=== PATIENT | female | born 1945 | race Caucasian/White ===

== ENCOUNTER 2016-10-24 07:22 | Day surgery (SDC) | payer OTHER ==
[2016-10-24] MEDS ORDERED: D5 LR 1000 ML 1,000 ML IV ONE (07:31)
[2016-10-24] MEDS ORDERED: DIPRIVAN VIAL 20 ML ONE (08:53)
[2016-10-24] MEDS ORDERED: DIPRIVAN VIAL 10 ML ONE (09:20)
[2016-10-24 10:26] VITALS: BP 120/64
== END 2016-10-24 09:55 | disposition home or self-care (01) ==
LOC: SURG1 07:22
PROVIDERS: ATTEND Internal Medicine Gastroenterology
PROC: 0DBL8ZX Excision of Transverse Colon, Via Natural or Artificial Opening Endoscopic, Diagnostic (ICD-10-PCS; principal; 2016-10-24 09:30)
PROC: 0DJD8ZZ Inspection of Lower Intestinal Tract, Via Natural or Artificial Opening Endoscopic (ICD-10-PCS; principal; 2016-10-24 09:30)
DX: K92.1 Melena (principal); Z86.010 Personal history of colon polyps; Z83.71 Family history of colonic polyps; K63.5 Polyp of colon; K57.30 Diverticulosis of large intestine without perforation or abscess without bleeding; K64.0 First degree hemorrhoids; D12.3 Benign neoplasm of transverse colon
CPT/HCPCS: 99100; A4217; J3490; J7120

== ENCOUNTER → 2017-07-03 | Outpatient (CLI) | payer OTHER ==
--- NOTE | 2017-07-03 12:02 | MG ---
HISTORY: SCREENING Comparison: 04/20/2015 FINDINGS: Bilateral CC and MLO projections of the right and left breast were obtained. Scattered fibroglandula r tissue is seen to be present. No significant architectural distortion, mass or clustered microcalc ifications can be observed to suggest malignancy. No skin thickening or nipple retraction is appreci ated. No pathological lymphadenopathy can be identified. IMPRESSION: NO RADIOGRAPHIC EVIDENCE OF MALIGNANCY. ACR CATEGORY: 1 - NEGATIVE EXAM. FOLLOW-UP EXAM 1 YEAR. Diagnostic CAD was utilized and reviewed. * 0 (ZERO) - ASSESSMENT INCOMPLETE; ADDITIONAL IMAGING IS NEEDED. * 1/1 (ONE) - NEGATIVE. * 2/II (TWO) - BENIGN FINDINGS. * 3/III (THREE) - PROBABLY BENIGN FINDING; SHORT INTERVAL FOLLOW-UP SUGGESTED. * 4/IV (FOUR) - SUSPICIOUS ABNORMALITY; BIOPSY SHOULD BE CONSIDERED. * 5/V - HIGHLY SUSPICIOUS OF MALIGNANCY; BIOPSY SHOULD BE PERFORMED. A NEGATIVE X-RAY REPORT SHOULD NOT DELAY BIOPSY IF A DOMINANT OR CLINICALLY SUSPICIOUS MASS IS PRESENT; 4 TO 8 PERCENT OF CANCERS ARE NOT IDENTIFIED BY X-RAY. A NEGA TIVE REPORT MAY REINFORCE THE CLINICAL IMPRESSION. ADENOSIS AND DENSE BREASTS MAY OBSCURE AN UNDERLY ING NEOPLASM. Reported By:
== END ==
LOC: RAD 10:45
PROVIDERS: ATTEND Internal Medicine
DX: Z12.31 Encounter for screening mammogram for malignant neoplasm of breast (principal)
CPT/HCPCS: 77067

== ENCOUNTER 2019-05-26 07:00 | Observation (INO) ==
[2019-05-26] MEDS ORDERED: ASPIRIN 81 MG CHEWTAB ONE (07:19)
[2019-05-26] MEDS ORDERED: ZOFRAN INJ 4 MG VIAL IVP ONE (07:27)
[2019-05-26] MEDS ORDERED: MORPHINE SULFATE INJ 2 MG INJ ONE ×2 (07:27→09:17)
[2019-05-26] MEDS ORDERED: ZOFRAN INJ 4 MG VIAL ONE (07:27)
[2019-05-26] MEDS ORDERED: MORPHINE SULFATE INJ 2 MG INJ IVP ONE ×2 (07:27→09:14)
[2019-05-26] MEDS ORDERED: NITRO-BID OINT 2% UD (E.R. USE ONLY) TD ONE (07:27)
[2019-05-26] MEDS ORDERED: ASPIRIN 81 MG CHEWTAB PO ONE (07:31)
--- NOTE | 2019-05-26 07:34 | DR.CP ---
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 Family History Family Medical History: Hypertension Social History Do you use any recreational Drugs:: No Infectious screening Isolation: Standard ROS Review of Systems Constitutional: No Symptoms Reported Respiratoy: No Symptoms Reported Cardiovascular: See HPI Gastrointestinal/Abdominal: No Symptoms Reported Genitourinary: No Symptoms Reported Neurological: No Symptoms Reported Musculoskeletal: See HPI Integumentary: No Symptoms Reported Hematologic/Lymphatic: No Symptoms Reported Endocrine: No Symptoms Reported Psychiatric: No Symptoms Reported PE Vitals Vitals: Temperature 98.4 F Pulse Rate 71 Respiratory Rate 26 Blood Pressure [Right Arm] 133/68 Blood Pressure 136/63 O2 Sat by Pulse Oximetry 99 General Limitations: No Limitations General Appearance: Alert and In No Apparent Distress Head Head Exam: Normal Inspection, Atraumatic and Normocephalic Eyes Eye exam: Normal Appearance, PERRL and EOMI ENT ENT Exam: Normal Exam Chest Chest Inspection: Normal Inspection, Symmetric Chest Wall Rise and Tenderness (mid to lateral lt chest wall) Respiratory Respiratory Exam: Normal Lung Sounds Bilat Respiratory Exam: Bilateral: Clear to Auscultation Cardiovascular Cardiovascular Exam: Regular Rate and Normal Rhythm Abdominal Exam Abdominal Exam: Normal Inspection, Normal Bowel Sounds and Soft Extremities Extremities Exam: Normal Inspection and Full ROM Back Back Exam: Normal Inspection Neurologic Neurological Exam: Alert, Oriented X3 and CN II-XII Intact Psychiatric Psychiatric Exam: Anxious (mild tears) Skin Skin Exam: Warm COURSE Treatment Treatment: 0[address] turned over to Dr Segovia Reevaluation 1st: Improved ("a little bit better but I still feel it in here (pointing to dis tho sternum) when I breathe"; diaphoretic) ROR Labs Reviewed Result Diagrams: 05/28/19 04:21 05/28/19 04:21 Laboratory: WBC 10.8 X10^3/uL (3.6-10.0) H 05/26/19 07:20 RBC 4.21 X10^6/uL (3.5-5.4) 05/26/19 07:20 Hgb 13.1 g/dL (12.0-16.0) 05/26/19 07:20 Hct 38.1 % (36.0-47.0) 05/26/19 07:20 MCV 90.6 fL (80.0-100.0) 05/26/19 07:20 MCH 31.1 pg (27.0-34.0) 05/26/19 07: MCHC 34.4 g/dL (33.0-35.0) 05/26/19 07:20 RDW 13.5 % (11.6-16.5) 05/26/19 07: Plt Count 242 X10^3/uL (150.0-450.0) 05/26/19 07:20 MPV 8.5 fL (7.4-11.0) 05/26/19 07:20 Neut % (Auto) 69.9 % (42.0-75.0) 05/26/19 07:20 Lymph % (Auto) 18.1 % (21.0-51.0) L 05/26/19 07:20 [place] % (Auto) 10.5 % (0.0-13.0) 05/26/19 07:20 Eos % (Auto) 0.7 % (0.9-2.9) L 05/26/19 07:20 Baso % (Auto) 0.8 % (0.2-1.0) 05/26/19 07:20 Neut # (Auto) 7.6 x10^3/uL (2.2-4.8) H 05/26/19 07:20 Lymph # (Auto) 2.0 X10^3/uL (1.3-2.9) 05/26/19 07:20 [place] # (Auto) 1.1 x10^3/uL (0.3-0.8) H 05/26/19 07:20 Eos # (Auto) 0.1 x10^3/uL (0.0-0.2) 05/26/19 07:20 Baso # (Auto) 0.1 X10^3/uL (0.0-0.1) 05/26/19 07:20 Absolute Nucleated RBC 0.0 /100WBC 05/26/19 07:20 Sodium 138 mmol/L (136-145) 05/26/19 07:20 Corrected Sodium 138 mmol/L (136-145) 05/26/19 07:20 Potassium 4.3 mmol/L (3.5-5.1) 05/26/19 07:20 Chloride 100 mmol/L (98-107) 05/26/19 07:20 Carbon Dioxide 30.5 mmol/L (21-32) 05/26/19 07:20 BUN 26 mg/dL (7-18) H 05/26/19 07:20 Creatinine 1.34 mg/dL (0.55-1.02) H 05/26/19 07:20 Est GFR (MDRD) Af Amer 50 (>60) L 05/26/19 07:20 Est GFR (MDRD) Non-Af 41 (>60) L 05/26/19 07:20 Glucose 119 mg/dL (65-99) H 05/26/19 07:20 Calcium 9.6 mg/dL (8.5-10.1) 05/26/19 07:20 Corrected Calcium TNP 05/26/19 07:20 Total Bilirubin 0.60 mg/dL (0.2-1.0) 05/26/19 07:20 AST 24 Units/L (15-37) 05/26/19 07:20 ALT 22 Units/L (12-78) 05/26/19 07:20 Alkaline Phosphatase 84 Units/L (46-116) 05/26/19 07:20 Creatine Kinase 99 Units/L (26-192) 05/26/19 07:20 CK-MB (CK-2) < 1.0 ng/mL (0-4.0) 05/26/19 07:20 CK/CKMB % Calc 1.0 % (<4) 05/26/19 07:20 Troponin I < 0.02 ng/mL (0-1.5) 05/26/19 07:20 Total Protein 8.3 g/dL (6.4-8.2) H 05/26/19 07:20 Albumin 3.8 g/dL (3.4-5.0) 05/26/19 07:20 Globulin 4.5 g/dL (2.5-4.5) 05/26/19 07:20 Albumin/Globulin Ratio 0.8 Ratio (1.1-2.1) L 05/26/19 07:20 Opioid Opioid Risk Tool Total: 0 Total Score Risk Category: Low Risk Copyright: Nick KELSEY predicting aberrant behaviors Diagnosis Discharge Problem: Benign essential HTN, Hypothyroidism (acquired) Chest pain Qualifiers: Chest pain type: precordial pain Qualified Code(s): R07.2 - Precordial pain Hyperlipidemia Qualifiers: Hyperlipidemia type: mixed hyperlipidemia Qualified Code(s): E78.2 - Mixed hyperlipidemia Instructions Instructions: Nonspecific Chest Pain Hypertension, [id number] Chest Wall Pain Angina Pectoris, [id number]
[2019-05-26 07:36] LABS: BASOPHILS # (AUTO) 0.1 X10^3/uL (0.0-0.1); BASOPHILS % (AUTO) 0.8 % (0.2-1.0); EOSINOPHILS # (AUTO) 0.1 x10^3/uL (0.0-0.2); EOSINOPHILS % (AUTO) 0.7 % (0.9-2.9); HEMATOCRIT 38.1 % (36.0-47.0); HEMOGLOBIN 13.1 g/dL (12.0-16.0); LYMPHOCYTES % (AUTO) 18.1 % (21.0-51.0); MEAN CORPUSCULAR HEMOGLOBIN 31.1 pg (27.0-34.0); MEAN CORPUSCULAR HGB CONC 34.4 g/dL (33.0-35.0); MEAN CORPUSCULAR VOLUME 90.6 fL (80.0-100.0); MEAN PLATELET VOLUME 8.5 fL (7.4-11.0); MONOCYTES # (AUTO) 1.1 x10^3/uL (0.3-0.8); MONOCYTES % (AUTO) 10.5 % (0.0-13.0); NEUTROPHILS # (AUTO) 7.6 x10^3/uL (2.2-4.8); NEUTROPHILS % (AUTO) 69.9 % (42.0-75.0); PLATELET COUNT 242 X10^3/uL (150.0-450.0); RED BLOOD COUNT 4.21 X10^6/uL (3.5-5.4); RED CELL DISTRIBUTION WIDTH 13.5 % (11.6-16.5); WHITE BLOOD COUNT 10.8 X10^3/uL (3.6-10.0)
[2019-05-26 07:37] VITALS: BMI 36.6
[2019-05-26] MEDS ORDERED: NITRO-BID OINT 2% Multi-Dose tube ONE (07:41)
[2019-05-26 07:50] LABS: BLOOD UREA NITROGEN 26 mg/dL (7-18); CALCIUM 9.6 mg/dL (8.5-10.1); CARBON DIOXIDE 30.5 mmol/L (21-32); CHLORIDE 100 mmol/L (98-107); COR NA(FOR HYPERGLY) 138 mmol/L (136-145); CREATININE 1.34 mg/dL (0.55-1.02); SODIUM 138 mmol/L (136-145); TROPONIN I < 0.02 ng/mL (0-1.5); eGFR NON BLACK RACES 41 (>60)
[2019-05-26 07:54] LABS: ALANINE AMINOTRANSFERASE 22 Units/L (12-78); ALBUMIN 3.8 g/dL (3.4-5.0); ALKALINE PHOSPHATASE 84 Units/L (46-116); ASPARTATE AMINO TRANSFERASE 24 Units/L (15-37); CREATINE KINASE 99 Units/L (26-192); CREATINE KINASE MB < 1.0 ng/mL (0-4.0); TOTAL PROTEIN 8.3 g/dL (6.4-8.2)
--- NOTE | 2019-05-26 08:00 | RAD ---
HISTORYSUBSTERNAL CHEST PAIN, PT STATES SHE COULD NOT TAKE A DEEP BREATHSTUDYSingle-view [id number].FINDINGSExamination is mildly expiratory.The trachea is midline. The cardi ac silhouette is accentuated by the expiratory technique. Heart size is likely normal.. There is [place] of bronchovascular markings accentuated by expiration. No consolidation, CHF, pleural fluid or p neumothorax is seen.. The bony thorax is unremarkable.IMPRESSIONNo acute cardiopulmonary disease.Hear t size and bronchovascular markings are accentuated by expiratory phase.Electronically signed by: JESUS DOS SANTOS (May 26, 2019 07:58:16)
--- NOTE | 2019-05-26 08:30 | DR.CP ---
HPI Time Seen Time Seen by Provider: 05/26/19 08:15 PCP Primary Care Physician: DR. CLARKE Complaint Chief Complaint Doctor Comments: A 73 y/o female [resenting with c/p since about 2300 hrs. last night just before going to bed. It was pressure like in the center of chest, it was not radiating. It is exacerbated by deep inspiration. She was diaphoretic at presentation to the ED this a.m. It felt like her usual pain from her hiatal hernia except that doesn't like so long. SHe had rated this as a 10/10 at presentation to the ED. She has received 2 mg of MSO4 and has a Nitro paste on her chest from the previous ED provider. Her pain is now at a 5 /10 Chief Complaint:: PATIENT STATES AROUND 11PM LAST NIGHT SHE STARTED HAVING PAIN AROUND HER LEFT SHOULDER BLADE. STATES THE PAIN MOVED TO HER MID CHEST. PATIENT DENIES ANY RADIATION OF PAIN AT THIS TIME. PATIENT DENIES ANY OTHER SYMPTOMS. Reviewed Nurses Notes Review: Yes Source History Provided: Patient Mode of Arrival Mode of Arrival: Ambulatory Timing Onset of Chief Complaint: 05/25/19 Location Location of Chest Pain: Chest Chest Pain Radiation Location: None Context Onset: At rest Cardiac Risk Factors: Hyperlipidemia and HTN PE Risk Factors: None History of: None Prehospital Care: None Quality Quality: Pressure like Modifying Factors Worsens: Breathing Impoves: Nothing Associated Signs and Symptoms Associated Signs and Symptoms: None PMH PMH Past Medical History: Yes Past Medical History: Hypertension and Hypothyroidism Past Medical History Comment: HERNIA Past Surgical History: Yes Surgical History: REDUCER Surgery and Hysterectomy Family History History of Family Medical Conditions: Yes Family Medical History: Hypertension Social History Does patient currently use any type of tobacco product: No Have you used tobacco products in the last 12 months: No Type of Tobacco Use: None Does any household member use tobacco: No Alcohol Use: None Do you use any recreational Drugs:: No Lives With: Spouse Lives Where: Home Travel Risk Coronavirus risk:travel/contact w/high risk person: No Has patient experienced Coronavirus symptoms: No Infectious screening Have you traveled outside the country in the last 6 months?: No Isolation: Standard ROS Review of Systems Constitutional: No Symptoms Reported Eyes: No Symptoms Reported ENTM: No Symptoms Reported Respiratoy: No Symptoms Reported Cardiovascular: Chest Pain Gastrointestinal/Abdominal: No Symptoms Reported Genitourinary: No Symptoms Reported Neurological: No Symptoms Reported Musculoskeletal: No Symptoms Reported Integumentary: No Symptoms Reported Hematologic/Lymphatic: No Symptoms Reported Endocrine: No Symptoms Reported Psychiatric: No Symptoms Reported All Other Systems: Reviewed and Negative PE Vitals Vitals: Temperature 98.4 F Pulse Rate 71 Respiratory Rate 26 Blood Pressure [Right Arm] 133/68 Blood Pressure 136/63 O2 Sat by Pulse Oximetry 99 General Limitations: No Limitations General Appearance: Alert, In No Apparent Distress and Obese Head Head Exam: Normal Inspection, Atraumatic and Normocephalic Eyes Eye exam: Normal Appearance and EOMI ENT ENT Exam: Normal Exam, Normal Oropharynx, Normal External Ear Exam and Mucous Membranes Moist Chest Chest Inspection: Normal Inspection and Symmetric Chest Wall Rise Respiratory Respiratory Exam: Normal Lung Sounds Bilat Cardiovascular Cardiovascular Exam: Regular Rate, Normal Rhythm, Normal Heart Sounds, +S1 and +S2 Abdominal Exam Abdominal Exam: Normal Inspection, Normal Bowel Sounds and Soft Extremities Extremities Exam: Normal Inspection and Full ROM Back Back Exam: Normal Inspection and Full ROM Neurologic Neurological Exam: Alert and Oriented X3 Psychiatric Psychiatric Exam: Normal Affect and Normal Mood Skin Skin Exam: Dry and Intact MDM Differential Diagnosis Differential Diagnosis: Angina, Chest Wall Pain, Costochondritis, Esophageal Reflux/Spasm, Gastritis, Myocardial Infarction and Pneumonia COURSE Reevaluation 1st: Improved Education/Counseling Education/Counseling: Patient, Education and Counseling Educated On: Treatment, Diagnosis, Prognosis and Needs for Follow Up ROR Labs Reviewed Result Diagrams: 05/26/19 07:20 05/26/19 07:20 Laboratory: WBC 10.8 X10^3/uL (3.6-10.0) H 05/26/19 07:20 RBC 4.21 X10^6/uL (3.5-5.4) 05/26/19 07:20 Hgb 13.1 g/dL (12.0-16.0) 05/26/19 07:20 Hct 38.1 % (36.0-47.0) 05/26/19 07:20 MCV 90.6 fL (80.0-100.0) 05/26/19 07:20 MCH 31.1 pg (27.0-34.0) 05/26/19 07:20 MCHC 34.4 g/dL (33.0-35.0) 05/26/19 07:20 RDW 13.5 % (11.6-16.5) 05/26/19 07:20 Plt Count 242 X10^3/uL (150.0-450.0) 05/26/19 07:20 MPV 8.5 fL (7.4-11.0) 05/26/19 07:20 Neut % (Auto) 69.9 % (42.0-75.0) 05/26/19 07:20 Lymph % (Auto) 18.1 % (21.0-51.0) L 05/26/19 07:20 [place] % (Auto) 10.5 % (0.0-13.0) 05/26/19 07:20 Eos % (Auto) 0.7 % (0.9-2.9) L 05/26/19 07:20 Baso % (Auto) 0.8 % (0.2-1.0) 05/26/19 07:20 Neut # (Auto) 7.6 x10^3/uL (2.2-4.8) H 05/26/19 07:20 Lymph # (Auto) 2.0 X10^3/uL (1.3-2.9) 05/26/19 07:20 [place] # (Auto) 1.1 x10^3/uL (0.3-0.8) H 05/26/19 07:20 Eos # (Auto) 0.1 x10^3/uL (0.0-0.2) 05/26/19 07:20 Baso # (Auto) 0.1 X10^3/uL (0.0-0.1) 05/26/19 07:20 Absolute Nucleated RBC 0.0 /100WBC 05/26/19 07:20 Sodium 138 mmol/L (136-145) 05/26/19 07:20 Corrected Sodium 138 mmol/L (136-145) 05/26/19 07:20 Potassium 4.3 mmol/L (3.5-5.1) 05/26/19 07:20 Chloride 100 mmol/L (98-107) 05/26/19 07:20 Carbon Dioxide 30.5 mmol/L (21-32) 05/26/19 07:20 BUN 26 mg/dL (7-18) H 05/26/19 07:20 Creatinine 1.34 mg/dL (0.55-1.02) H 05/26/19 07:20 Est GFR (MDRD) Af Amer 50 (>60) L 05/26/19 07:20 Est GFR (MDRD) Non-Af 41 (>60) L 05/26/19 07:20 Glucose 119 mg/dL (65-99) H 05/26/19 07:20 Calcium 9.6 mg/dL (8.5-10.1) 05/26/19 07:20 Corrected Calcium TNP 05/26/19 07:20 Total Bilirubin 0.60 mg/dL (0.2-1.0) 05/26/19 07:20 AST 24 Units/L (15-37) 05/26/19 07:20 ALT 22 Units/L (12-78) 05/26/19 07:20 Alkaline Phosphatase 84 Units/L (46-116) 05/26/19 07:20 Creatine Kinase 99 Units/L (26-192) 05/26/19 07:20 CK-MB (CK-2) < 1.0 ng/mL (0-4.0) 05/26/19 07:20 CK/CKMB % Calc 1.0 % (<4) 05/26/19 07:20 Troponin I < 0.02 ng/mL (0-1.5) 05/26/19 07:20 Total Protein 8.3 g/dL (6.4-8.2) H 05/26/19 07:20 Albumin 3.8 g/dL (3.4-5.0) 05/26/19 07:20 Globulin 4.5 g/dL (2.5-4.5) 05/26/19 07:20 Albumin/Globulin Ratio 0.8 Ratio (1.1-2.1) L 05/26/19 07:20 EKG Rate: 82 Leonard: Normal Rhythm: NSR Block: None Hypertrophy: None ST: Normal Opioid Opioid Risk Tool Age (Wagner box if 16-45): No Total: 0 Total Score Risk Category: Low Risk Copyright: Nick KELSEY predicting aberrant behaviors Diagnosis Discharge Problem: Benign essential HTN, Hypothyroidism (acquired) Chest pain Qualifiers: Chest pain type: precordial pain Qualified Code(s): R07.2 - Precordial pain Hyperlipidemia Qualifiers: Hyperlipidemia type: mixed hyperlipidemia Qualified Code(s): E78.2 - Mixed hyperlipidemia ADDITIONAL NOTES Additional Notes Additional Notes: Name: POONAM GILL : 1945 Sex: F Location: ER Order Number(s): [id number] Procedure(s):CHEST, 1 VIEW Ordering Physician: Sarah Mares Primary Care: Smith Clarke Service Date: 05/26/19 Service Time: 728 HISTORY SUBSTERNAL CHEST PAIN, PT STATES SHE COULD NOT TAKE A DEEP BREATH STUDY Single-view chest COMPARISON 12/13/2017. FINDINGS Examination is mildly expiratory. The trachea is midline. The cardiac silhouette is accentuated by the expiratory technique. Heart size is likely normal.. There is crowding of bronchovascular markings accentuated by expiration. No consolidation, CHF, pleural fluid or pneumothorax is seen.. The bony thorax is unremarkable. IMPRESSION No acute cardiopulmonary disease. Heart size and bronchovascular markings are accentuated by expiratory phase. Electronically signed by: JESUS DOS SANTOS (May 26, 2019 07:58:16)
[2019-05-26] MEDS ORDERED: ATIVAN TAB 1 MG PO PRN (09:23)
[2019-05-26] MEDS ORDERED: ATIVAN INJ 2 MG VIAL IVP ONE (09:34)
[2019-05-26] MEDS ORDERED: ATIVAN INJ 2 MG VIAL ONE (09:35)
[2019-05-26] MEDS ORDERED: NS 1000 ML 1,000 ML ONE (10:09)
[2019-05-26] MEDS: NS 1000 ML 1,000 ML IV SCH ×3 (10:15→23:03)
[2019-05-26 10:38] LABS: CKMB % 1.2 % (<4); CREATINE KINASE 85 Units/L (26-192); CREATINE KINASE MB < 1.0 ng/mL (0-4.0); TROPONIN I < 0.02 ng/mL (0-1.5)
[2019-05-26] MEDS ORDERED: TORADOL 30 MG VIAL IM ONE (10:57)
[2019-05-26] MEDS ORDERED: LEVSIN/MAALOX/LIDOC VISC PO ONE (10:57)
[2019-05-26] MEDS ORDERED: LEVSIN/MAALOX/LIDOC VISC ONE (10:59)
[2019-05-26] MEDS ORDERED: TORADOL 30 MG VIAL ONE (10:59)
[2019-05-26] MEDS ORDERED: NITRO-BID OINT 2% Multi-Dose tube TD SCH (15:00)
[2019-05-26] MEDS ORDERED: NITRO-BID OINT 2% UD (E.R. USE ONLY) ONE (15:25)
[2019-05-26] MEDS: MORPHINE SULFATE INJ 2 MG INJ IVP PRN ×2 (15:28→17:33)
[2019-05-26] MEDS ORDERED: NITRO-BID OINT 2% UD (E.R. USE ONLY) TD SCH (16:00)
[2019-05-26 16:07] LABS: CKMB % 1.7 % (<4); CREATINE KINASE 59 Units/L (26-192); CREATINE KINASE MB < 1.0 ng/mL (0-4.0); TROPONIN I < 0.02 ng/mL (0-1.5)
[2019-05-26] MEDS: LOVENOX INJ 40 MG SYR SC SCH (20:21)
[2019-05-26] MEDS: LIPITOR TAB 40 MG PO SCH (20:21)
[2019-05-26] MEDS: LOPRESSOR TAB 50 MG PO SCH (20:21)
[2019-05-26 21:49] LABS: CKMB % 2.2 % (<4); CREATINE KINASE 46 Units/L (26-192); CREATINE KINASE MB < 1.0 ng/mL (0-4.0); TROPONIN I < 0.02 ng/mL (0-1.5)
[2019-05-26] MEDS: VOLTAREN 1 % GEL MULTI DOSE TUBE TOP SCH (22:36)
[2019-05-27] MEDS: SYNTHROID 50 mcg TAB PO SCH (05:07)
[2019-05-27 06:22] LABS: BASOPHILS # (AUTO) 0.1 X10^3/uL (0.0-0.1); BASOPHILS % (AUTO) 0.5 % (0.2-1.0); EOSINOPHILS # (AUTO) 0.1 x10^3/uL (0.0-0.2); EOSINOPHILS % (AUTO) 0.9 % (0.9-2.9); HEMATOCRIT 31.9 % (36.0-47.0); HEMOGLOBIN 10.8 g/dL (12.0-16.0); LYMPHOCYTES # (AUTO) 1.7 X10^3/uL (1.3-2.9); LYMPHOCYTES % (AUTO) 13.4 % (21.0-51.0); MEAN CORPUSCULAR HEMOGLOBIN 31.2 pg (27.0-34.0); MEAN CORPUSCULAR HGB CONC 33.8 g/dL (33.0-35.0); MEAN CORPUSCULAR VOLUME 92.2 fL (80.0-100.0); MEAN PLATELET VOLUME 8.8 fL (7.4-11.0); MONOCYTES # (AUTO) 1.3 x10^3/uL (0.3-0.8); MONOCYTES % (AUTO) 10.7 % (0.0-13.0); NEUTROPHILS # (AUTO) 9.2 x10^3/uL (2.2-4.8); NEUTROPHILS % (AUTO) 74.5 % (42.0-75.0); PLATELET COUNT 182 X10^3/uL (150.0-450.0); RED BLOOD COUNT 3.45 X10^6/uL (3.5-5.4); RED CELL DISTRIBUTION WIDTH 13.9 % (11.6-16.5); WHITE BLOOD COUNT 12.3 X10^3/uL (3.6-10.0)
[2019-05-27 06:38] LABS: ALANINE AMINOTRANSFERASE 16 Units/L (12-78); ALBUMIN 2.8 g/dL (3.4-5.0); ALKALINE PHOSPHATASE 53 Units/L (46-116); ASPARTATE AMINO TRANSFERASE 20 Units/L (15-37); BLOOD UREA NITROGEN 29 mg/dL (7-18); CALCIUM 8.3 mg/dL (8.5-10.1); CARBON DIOXIDE 28.2 mmol/L (21-32); CHLORIDE 103 mmol/L (98-107); CHOL/HDL RATIO 2.3 (0.0-5.0); CHOLESTEROL 135 mg/dL (0-200); CKMB % 2.9 % (<4); COR CA(FOR HYPOALB) 9.3 mg/dL (8.5-10.1); CREATINE KINASE 35 Units/L (26-192); CREATINE KINASE MB < 1.0 ng/mL (0-4.0); CREATININE 1.41 mg/dL (0.55-1.02); HDL CHOLESTEROL 58 mg/dL (40-60); MAGNESIUM 1.8 mg/dL (1.7-2.9); SODIUM 137 mmol/L (136-145); TOTAL PROTEIN 6.9 g/dL (6.4-8.2); TRIGLYCERIDES 50 mg/dL (0-150); TROPONIN I < 0.02 ng/mL (0-1.5); eGFR NON BLACK RACES 39 (>60)
[2019-05-27] MEDS ORDERED: PROTONIX TAB 40 MG PO SCH (09:00)
[2019-05-27] MEDS: SINGULAIR TAB 10 MG PO SCH (09:15)
[2019-05-27] MEDS: ASPIRIN PO SCH (09:15)
[2019-05-27] MEDS: HYZAAR 50/12.5 MG PO SCH (09:15)
[2019-05-27] MEDS: LOPRESSOR TAB 50 MG PO SCH ×2 (09:15→20:34)
[2019-05-27] MEDS: FOLIC ACID TAB 1 MG PO SCH (09:15)
[2019-05-27] MEDS: LOVENOX INJ 40 MG SYR SC SCH ×2 (09:15→20:34)
[2019-05-27] MEDS: VOLTAREN 1 % GEL MULTI DOSE TUBE TOP SCH ×3 (09:15→22:35)
[2019-05-27] MEDS: LEVSIN/MAALOX/LIDOC VISC PO SCH ×4 (10:57→20:34)
[2019-05-27] MEDS: PROTONIX INJ 40 MG VIAL IVP SCH ×2 (10:58→20:34)
[2019-05-27] MEDS: PEPCID 20 MG IV PREMIX* 20 MG/50 ML BAG IV SCH (10:58)
[2019-05-27] MEDS: NS 1000 ML 1,000 ML IV SCH (12:10)
[2019-05-27] MEDS: LIPITOR TAB 40 MG PO SCH (20:34)
--- NOTE | 2019-05-27 21:36 | DR.H&P ---
H&P - History & Physical for Day of: H&P Date: 05/26/19 - Chief Complaint Chief Complaint: CHEST PAIN - History of Present Illness History of Present Illness: IS A 73 YEAR OLD PATIENT OF OURS WHO PRESENTED TO THE ER [facility] COMPLAINTS OF CHEST PAIN AND SHORTNESS OF BREATH. PAIN IS WORSE UPON MOVEMENT. SHE DENIES HISTORY OF HEART DISEASE OR ACUTE INJURY. SHE HAS A MEDICAL HISTORY OF HYPERTENSION AND HYPOTHYROIDISM. ON ARRIVAL TO THE ER, VITALS WERE 98.4-82-24-99%-189/86. LABS WERE OBTAINED. ABNORMAL LAB VALUES INCLUDE THE FOLLOWING: WBC 10.8, BUN 26, CREATININE 1.34, GLUCOSE 119, TOTAL PROTEIN 8.3. CARDIAC ENZYMES WERE WITHIN NORMAL LIMITS. AN EKG WAS OBTAINED AND REVEALED: SINUS RHYTHM WITH HR 82. A CHEST XRAY WAS OBTAINED AND REVEALED: No acute cardiopulmonary disease. Heart size and bronchovascular markings are accentuated by expiratory phase. 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 HE FEELS THAT CHEST PAIN IS ATYPICAL AND MUSCULOSKELETAL IN ORIGIN. HE RECOMMENDS RULING OUT GERD OR GASTRIC CAUSES. SHE WAS ADMITTED FOR FURTHER EVALUATION AND TREATMENT OF CHEST PAIN, RULE OUT ACUTE IN. SHE WAS STARTED ON NITRO OINTMENT, GIVEN TORADOL 30G IM X 1, GI COCKTAIL 30 ML PO X 1, ATIVAN 1MG IV X 1, MORPHINE 2MG IV X 2, ZOFRAN 4MG IV X 1, AND ASPIRIN 81MG PO X 4. WE STARTED NORMAL SALINE AT 75 ML/HR, LOVENOX 40MG SC BID, IV PEPCID, IV PROTONIX, GI COCKTAIL, MORPHINE 2MG IV Q2H PRN, AND ATIVAN 1MG PO Q8H PRN. WE WILL OBTAIN AN ECHO TODAY. OTHERWISE, WE WILL FOLLOW UP WITH AM LABS AND CONTINUE TO MONITOR. - Past Medical History Past Medical History: Hypertension, Hypothyroidism - Past Surgical History Surgical History: Hysterectomy - Family History Family Medical History: Hypertension - Social History Does patient currently use any type of tobacco product: No Have you used tobacco products in the last 12 months: No Type of Tobacco Use: None Does any household member use tobacco: No Alcohol Use: None - Medications Home Medications: fluticasone [From Flonase] Allergy (Verified 05/26/19 17:03) CONTINUE taking the following medications atorvastatin 10 mg PO QHS 05/26/19 [History] diclofenac sodium 1 g TOPICAL BID 05/26/19 [History] folic acid 1 mg PO DAILY 05/26/19 [History] levothyroxine 50 mcg PO DAILY 05/26/19 [History] losartan-hydrochlorothiazide 1 tab PO DAILY 05/26/19 [History] montelukast 10 mg PO DAILY 05/26/19 [History] pantoprazole 40 mg PO DAILY 05/26/19 [History] - Review of Systems Constitutional: No Symptoms Reported Eyes: No Symptoms Reported ENT: No Symptoms Reported Respiratory: Shortness of Breath Cardiovascular: Chest Pain, See HPI Gastrointestinal: No Symptoms Reported Genitourinary: No Symptoms Reported Musculoskeletal: No Symptoms Reported Skin: No Symptoms Reported Neurological: No Symptoms Reported - Physical Exam Vital Signs: Temperature 99.3 F Pulse Rate [Brachial] 80 Pulse Rate 65 Respiratory Rate 22 Blood Pressure [Right Arm] 160/70 Blood Pressure 94/45 O2 Sat by Pulse Oximetry 95 Oriented: Normal Eyes: Normal Ear: Normal Nose: Normal Throat: Normal Respiratory: Diminished Throughout Cardiovascular: Normal. negative: S3, S4, Murmur : Normal Auscultation: Bowel Sounds: Normal Palpation: Normal Tenderness: Normal Skin: Normal Musculoskeletal: Normal Psychiatric: Normal Mood Description: Calm Affect: Normal Speech Pattern: Clear - Assessment/Plan (1) Chest pain, rule out acute myocardial infarction Status: Acute Plan: ADMIT, NORMAL SALINE AT 75 ML/HR, LOVENOX 40MG SC BID, IV PEPCID, IV PROTONIX, GI COCKTAIL, MORPHINE 2MG IV Q2H PRN, AND ATIVAN 1MG PO Q8H PRN, OBTAIN ECHO - Allergies Allergies/Adverse Reactions: Allergies Allergy/AdvReac Type Severity Reaction Status Date / Time fluticasone [From Flonase] Allergy Verified 05/26/19 17:03
[2019-05-28] MEDS: NS 1000 ML 1,000 ML IV SCH ×2 (01:30→01:51)
[2019-05-28 05:09] LABS: BASOPHILS # (AUTO) 0.1 X10^3/uL (0.0-0.1); BASOPHILS % (AUTO) 0.8 % (0.2-1.0); EOSINOPHILS # (AUTO) 0.3 x10^3/uL (0.0-0.2); EOSINOPHILS % (AUTO) 4.2 % (0.9-2.9); HEMATOCRIT 30.7 % (36.0-47.0); HEMOGLOBIN 10.5 g/dL (12.0-16.0); LYMPHOCYTES # (AUTO) 1.8 X10^3/uL (1.3-2.9); LYMPHOCYTES % (AUTO) 21.8 % (21.0-51.0); MEAN CORPUSCULAR HEMOGLOBIN 31.5 pg (27.0-34.0); MEAN CORPUSCULAR HGB CONC 34.3 g/dL (33.0-35.0); MEAN CORPUSCULAR VOLUME 91.8 fL (80.0-100.0); MEAN PLATELET VOLUME 9.2 fL (7.4-11.0); MONOCYTES # (AUTO) 0.9 x10^3/uL (0.3-0.8); MONOCYTES % (AUTO) 10.9 % (0.0-13.0); NEUTROPHILS # (AUTO) 5.2 x10^3/uL (2.2-4.8); NEUTROPHILS % (AUTO) 62.3 % (42.0-75.0); PLATELET COUNT 173 X10^3/uL (150.0-450.0); RED BLOOD COUNT 3.35 X10^6/uL (3.5-5.4); RED CELL DISTRIBUTION WIDTH 13.8 % (11.6-16.5); WHITE BLOOD COUNT 8.3 X10^3/uL (3.6-10.0)
[2019-05-28 05:28] LABS: ALANINE AMINOTRANSFERASE 15 Units/L (12-78); ALBUMIN 2.6 g/dL (3.4-5.0); ALKALINE PHOSPHATASE 66 Units/L (46-116); ASPARTATE AMINO TRANSFERASE 17 Units/L (15-37); BLOOD UREA NITROGEN 26 mg/dL (7-18); CALCIUM 8.2 mg/dL (8.5-10.1); CARBON DIOXIDE 27.6 mmol/L (21-32); CHLORIDE 105 mmol/L (98-107); COR CA(FOR HYPOALB) 9.3 mg/dL (8.5-10.1); CREATININE 1.37 mg/dL (0.55-1.02); SODIUM 139 mmol/L (136-145); TOTAL PROTEIN 6.6 g/dL (6.4-8.2); eGFR NON BLACK RACES 40 (>60)
[2019-05-28] MEDS: SYNTHROID 50 mcg TAB PO SCH (05:41)
[2019-05-28] MEDS: LOVENOX INJ 40 MG SYR SC SCH (09:45)
[2019-05-28] MEDS: LOPRESSOR TAB 50 MG PO SCH (09:45)
[2019-05-28] MEDS: HYZAAR 50/12.5 MG PO SCH (09:45)
[2019-05-28] MEDS: PROTONIX INJ 40 MG VIAL IVP SCH (09:45)
[2019-05-28] MEDS: SINGULAIR TAB 10 MG PO SCH (09:45)
[2019-05-28] MEDS: ASPIRIN PO SCH (09:45)
[2019-05-28] MEDS: FOLIC ACID TAB 1 MG PO SCH (09:45)
[2019-05-28] MEDS: LEVSIN/MAALOX/LIDOC VISC PO SCH (09:48)
[2019-05-28] MEDS: VOLTAREN 1 % GEL MULTI DOSE TUBE TOP SCH (09:49)
[2019-05-28] MEDS: PEPCID 20 MG IV PREMIX* 20 MG/50 ML BAG IV SCH (09:49)
[2019-05-28 13:28] VITALS: BP 166/70
--- NOTE | 2019-06-08 07:54 | DR.CP ---
HPI Time Seen Time Seen by Provider: 05/26/19 08:15 PCP Primary Care Physician: VINCE SOUZA HPI Comment HPI Comment: She c/o pain as below; no radiation, n/v/dizziness, weakness. Complaint Chief Complaint:: PATIENT STATES AROUND 11PM LAST NIGHT SHE STARTED HAVING PAIN AROUND HER LEFT SHOULDER BLADE. STATES THE PAIN MOVED TO HER MID CHEST. PATIENT DENIES ANY RADIATION OF PAIN AT THIS TIME. PATIENT DENIES ANY OTHER SYMPTOMS. Reviewed Nurses Notes Review: Yes Source History Provided: Patient Mode of Arrival Mode of Arrival: Ambulatory Timing Onset of Chief Complaint: 05/25/19 Location Chest Pain Radiation Location: None Associated Signs and Symptoms Associated Signs and Symptoms: None PMH PMH Past Medical History: Yes Past Medical History: Hypertension and Hypothyroidism Past Medical History Comment: HERNIA Past Surgical History: Yes Surgical History: Hysterectomy Family History History of Family Medical Conditions: Yes Family Medical History: Hypertension Social History Does patient currently use any type of tobacco product: No Have you used tobacco products in the last 12 months: No Type of Tobacco Use: None Does any household member use tobacco: No Alcohol Use: None Do you use any recreational Drugs:: No Lives With: Spouse Lives Where: Home Travel Risk Coronavirus risk:travel/contact w/high risk person: No Has patient experienced Coronavirus symptoms: No Infectious screening Have you traveled outside the country in the last 6 months?: No Isolation: Standard ROS Review of Systems Constitutional: No Symptoms Reported Eyes: No Symptoms Reported ENTM: No Symptoms Reported Respiratoy: No Symptoms Reported Cardiovascular: See HPI Gastrointestinal/Abdominal: No Symptoms Reported Neurological: No Symptoms Reported Musculoskeletal: No Symptoms Reported Integumentary: No Symptoms Reported Hematologic/Lymphatic: No Symptoms Reported Endocrine: No Symptoms Reported PE Vitals Vitals: Temperature 98.4 F Pulse Rate 71 Respiratory Rate 26 Blood Pressure [Right Arm] 133/68 Blood Pressure 136/63 O2 Sat by Pulse Oximetry 99 General Limitations: No Limitations General Appearance: Alert and In No Apparent Distress Head Head Exam: Normal Inspection, Atraumatic and Normocephalic Eyes Eye exam: Normal Appearance, PERRL and EOMI Chest Chest Inspection: Normal Inspection Respiratory Respiratory Exam: Normal Lung Sounds Bilat Respiratory Exam: Bilateral: Clear to Auscultation Cardiovascular Cardiovascular Exam: Regular Rate and Normal Rhythm Abdominal Exam Abdominal Exam: Normal Inspection, Normal Bowel Sounds and Soft Extremities Extremities Exam: Normal Inspection and Full ROM Neurologic Neurological Exam: Alert, Oriented X3 and CN II-XII Intact Psychiatric Psychiatric Exam: Normal Affect and Normal Mood Skin Skin Exam: Warm and Dry COURSE Treatment Treatment: 0[address] given over [address] Dr Segovia ROR Labs Reviewed Result Diagrams: 05/28/19 04:21 05/28/19 04:21 Laboratory: WBC 10.8 X10^3/uL (3.6-10.0) H 05/26/19 07:20 RBC 4.21 X10^6/uL (3.5-5.4) 05/26/19 07:20 Hgb 13.1 g/dL (12.0-16.0) 05/26/19 07:20 Hct 38.1 % (36.0-47.0) 05/26/19 07:20 MCV 90.6 fL (80.0-100.0) 05/26/19 07:20 MCH 31.1 pg (27.0-34.0) 05/26/19 07:20 MCHC 34.4 g/dL (33.0-35.0) 05/26/19 07:20 RDW 13.5 % (11.6-16.5) 05/26/19 07:20 Plt Count 242 X10^3/uL (150.0-450.0) 05/26/19 07:20 MPV 8.5 fL (7.4-11.0) 05/26/19 07:20 Neut % (Auto) 69.9 % (42.0-75.0) 05/26/19 07:20 Lymph % (Auto) 18.1 % (21.0-51.0) L 05/26/19 07:20 [place] % (Auto) 10.5 % (0.0-13.0) 05/26/19 07:20 Eos % (Auto) 0.7 % (0.9-2.9) L 05/26/19 07:20 Baso % (Auto) 0.8 % (0.2-1.0) 05/26/19 07:20 Neut # (Auto) 7.6 x10^3/uL (2.2-4.8) H 05/26/19 07:20 Lymph # (Auto) 2.0 X10^3/uL (1.3-2.9) 05/26/19 07:20 [place] # (Auto) 1.1 x10^3/uL (0.3-0.8) H 05/26/19 07:20 Eos # (Auto) 0.1 x10^3/uL (0.0-0.2) 05/26/19 07:20 Baso # (Auto) 0.1 X10^3/uL (0.0-0.1) 05/26/19 07:20 Absolute Nucleated RBC 0.0 /100WBC 05/26/19 07:20 Sodium 138 mmol/L (136-145) 05/26/19 07:20 Corrected Sodium 138 mmol/L (136-145) 05/26/19 07:20 Potassium 4.3 mmol/L (3.5-5.1) 05/26/19 07:20 Chloride 100 mmol/L (98-107) 05/26/19 07:20 Carbon Dioxide 30.5 mmol/L (21-32) 05/26/19 07:20 BUN 26 mg/dL (7-18) H 05/26/19 07:20 Creatinine 1.34 mg/dL (0.55-1.02) H 05/26/19 07:20 Est GFR (MDRD) Af Amer 50 (>60) L 05/26/19 07:20 Est GFR (MDRD) Non-Af 41 (>60) L 05/26/19 07:20 Glucose 119 mg/dL (65-99) H 05/26/19 07:20 Calcium 9.6 mg/dL (8.5-10.1) 05/26/19 07:20 Corrected Calcium TNP 05/26/19 07:20 Total Bilirubin 0.60 mg/dL (0.2-1.0) 05/26/19 07:20 AST 24 Units/L (15-37) 05/26/19 07:20 ALT 22 Units/L (12-78) 05/26/19 07:20 Alkaline Phosphatase 84 Units/L (46-116) 05/26/19 07:20 Creatine Kinase 99 Units/L (26-192) 05/26/19 07:20 CK-MB (CK-2) < 1.0 ng/mL (0-4.0) 05/26/19 07:20 CK/CKMB % Calc 1.0 % (<4) 05/26/19 07:20 Troponin I < 0.02 ng/mL (0-1.5) 05/26/19 07:20 Total Protein 8.3 g/dL (6.4-8.2) H 05/26/19 07:20 Albumin 3.8 g/dL (3.4-5.0) 05/26/19 07:20 Globulin 4.5 g/dL (2.5-4.5) 05/26/19 07:20 Albumin/Globulin Ratio 0.8 Ratio (1.1-2.1) L 05/26/19 07:20 Opioid Opioid Risk Tool Age (Wagner box if 16-45): No History of Preadolescent Sexual Abuse: No Total: 0 Total Score Risk Category: Low Risk Copyright: Nick KELSEY predicting aberrant behaviors Diagnosis Discharge Problem: Benign essential HTN, Hypothyroidism (acquired) Chest pain Qualifiers: Chest pain type: precordial pain Qualified Code(s): R07.2 - Precordial pain Hyperlipidemia Qualifiers: Hyperlipidemia type: mixed hyperlipidemia Qualified Code(s): E78.2 - Mixed hyperlipidemia Instructions Instructions: Nonspecific Chest Pain Hypertension, [id number] Chest Wall Pain Angina Pectoris, [id number] Forms: Precautions for COVID19 Patient Portal Social Distancing
--- NOTE | 2019-06-18 11:09 | PCM.PROG ---
Progress Note - Progress Note for Day of Date of Exam: 05/27/19 - Subjective Subjective: WAS ADMITTED FOR CHEST PAIN, RULE OUT ACUTE [place]. TODAY, SHE IS ALERT AND ORINENTED, LYING IN BED ON MORNING ROUNDS. SHE CONTINUES WITH MILD SOB AND INTERMITTENT CHEST DISCOMFORT THIS MORNING. ON EXAMINATION, HEART IS REGULAR IN RATE AND RHYTHM. BILATERAL LUNGS ARE NOTED WITH DIMINISHED LUNG SOUNDS THROUGHOUT. ABDOMEN IS ROUND, SOFT, AND NON-TENDER WITH NORMAL BOWEL SOUNDS NOTED IN ALL QUADRANTS. HER VITALS THIS MORNING ARE: 98.6-81-20-94%-122/60. LABS WERE OBTAINED. ABNORMAL LAB VALUES INCLUDE THE FOLLOWING: WBC 12.3, RBC 3.45, HGB 10.8, HCT 31.9, BUN 29, CREATININE 1.41, CALC IUM 8.3, ALBUMIN 2.8. SHE IS CURRENTLY RECEIVING NORMAL SALINE AT 75 ML/HR, LOVENOX 40MG SC BID, IV PEPCID, IV PROTONIX, GI COCKTAIL, MORPHINE 2MG IV Q2H PRN, AND ATIVAN 1MG PO Q8H PRN. SHE IS SCHEDULED FOR AN ECHO TODAY. OTHERWISE, WE WILL FOLLOW UP WITH AM LABS AND CONTINUE TO MONITOR. - Past Medical Family Social History Past Med/Fam/Surg Hx: No changes since H&P Allergies: Allergies fluticasone [From Flonase] Allergy (Verified 05/26/19 17:03) - Review of Systems ROS: No change since H&P - Vital Signs and I&O's Vital Signs: Temperature 98.0 F Pulse Rate [Brachial] 73 Pulse Rate 65 Respiratory Rate 20 Blood Pressure [Right Arm] 166/70 Blood Pressure 94/45 O2 Sat by Pulse Oximetry 96 - Physical Exam Oriented: Normal Eyes: Normal Ear: Normal Nose: Normal Throat: Normal Respiratory: Generalized, Diminished Cardiovascular: Normal. negative: S3, S4, Murmur : Normal Auscultation: Bowel Sounds: Normal Palpation: Normal Tenderness: Normal Skin: Normal Musculoskeletal: Normal Psychiatric: Normal Mood Description: Calm Affect: Normal Speech Pattern: Clear, Appropriate - Laboratory and Diagnostics Result Diagrams: 05/28/19 04:21 05/28/19 04:21 Labs: Laboratory WBC 8.3 X10^3/uL (3.6-10.0) 05/28/19 04:21 RBC 3.35 X10^6/uL (3.5-5.4) L 05/28/19 04:21 Hgb 10.5 g/dL (12.0-16.0) L 05/28/19 04:21 Hct 30.7 % (36.0-47.0) L 05/28/19 04:21 MCV 91.8 fL (80.0-100.0) 05/28/19 04:21 MCH 31.5 pg (27.0-34.0) 05/28/19 04:21 MCHC 34.3 g/dL (33.0-35.0) 05/28/19 04:21 RDW 13.8 % (11.6-16.5) 05/28/19 04:21 Plt Count 173 X10^3/uL (150.0-450.0) 05/28/19 04:21 MPV 9.2 fL (7.4-11.0) 05/28/19 04:21 Neut % (Auto) 62.3 % (42.0-75.0) 05/28/19 04:21 Lymph % (Auto) 21.8 % (21.0-51.0) 05/28/19 04:21 [place] % (Auto) 10.9 % (0.0-13.0) 05/28/19 04:21 Eos % (Auto) 4.2 % (0.9-2.9) H 05/28/19 04:21 Baso % (Auto) 0.8 % (0.2-1.0) 05/28/19 04:21 Neut # (Auto) 5.2 x10^3/uL (2.2-4.8) H 05/28/19 04:21 Lymph # (Auto) 1.8 X10^3/uL (1.3-2.9) 05/28/19 04:21 [place] # (Auto) 0.9 x10^3/uL (0.3-0.8) H 05/28/19 04:21 Eos # (Auto) 0.3 x10^3/uL (0.0-0.2) H 05/28/19 04:21 Baso # (Auto) 0.1 X10^3/uL (0.0-0.1) 05/28/19 04:21 Absolute Nucleated RBC 0.0 /100WBC 05/28/19 04:21 PT 15.6 SECONDS (11.8-14.3) 05/27/19 05:12 INR Target Range - 05/27/19 05:12 INR 1.29 (0.8-1.3) 05/27/19 05:12 APTT 42.7 SECONDS (22.9-36.5) H 05/27/19 05:12 PTT Comment - 05/27/19 05:12 Sodium 139 mmol/L (136-145) 05/28/19 04:21 Corrected Sodium TNP 05/28/19 04:21 Potassium 4.0 mmol/L (3.5-5.1) 05/28/19 04:21 Chloride 105 mmol/L (98-107) 05/28/19 04:21 Carbon Dioxide 27.6 mmol/L (21-32) 05/28/19 04:21 BUN 26 mg/dL (7-18) H 05/28/19 04:21 Creatinine 1.37 mg/dL (0.55-1.02) H 05/28/19 04:21 Est GFR (MDRD) Af Amer 48 (>60) L 05/28/19 04:21 Est GFR (MDRD) Non-Af 40 (>60) L 05/28/19 04:21 Glucose 108 mg/dL (65-99) H 05/28/19 04:21 Calcium 8.2 mg/dL (8.5-10.1) L 05/28/19 04:21 Corrected Calcium 9.3 mg/dL (8.5-10.1) 05/28/19 04:21 Magnesium 1.8 mg/dL (1.7-2.9) 05/27/19 05:12 Total Bilirubin 0.40 mg/dL (0.2-1.0) 05/28/19 04:21 AST 17 Units/L (15-37) 05/28/19 04:21 ALT 15 Units/L (12-78) 05/28/19 04:21 Alkaline Phosphatase 66 Units/L (46-116) 05/28/19 04:21 Creatine Kinase 35 Units/L (26-192) 05/27/19 05:12 CK-MB (CK-2) < 1.0 ng/mL (0-4.0) 05/27/19 05:12 CK/CKMB % Calc 2.9 % (<4) 05/27/19 05:12 Troponin I < 0.02 ng/mL (0-1.5) 05/27/19 05:12 Total Protein 6.6 g/dL (6.4-8.2) 05/28/19 04:21 Albumin 2.6 g/dL (3.4-5.0) L 05/28/19 04:21 Globulin 4.0 g/dL (2.5-4.5) 05/28/19 04:21 Albumin/Globulin Ratio 0.7 Ratio (1.1-2.1) L 05/28/19 04:21 Triglycerides 50 mg/dL (0-150) 05/27/19 05:12 Cholesterol 135 mg/dL (0-200) 05/27/19 05:12 LDL Cholesterol, Calc 67 mg/dL (0-100) 05/27/19 05:12 HDL Cholesterol 58 mg/dL (40-60) 05/27/19 05:12 Cholesterol/HDL Ratio 2.3 (0.0-5.0) 05/27/19 05:12 - Plan (1) Chest pain, rule out acute myocardial infarction Status: Acute Plan: NORMAL SALINE AT 75 ML/HR, LOVENOX 40MG SC BID, IV PEPCID, IV PROTONIX, GI COCKTAIL, MORPHINE 2MG IV Q2H PRN, AND ATIVAN 1MG PO Q8H PRN, OBTAIN ECHO
== END 2019-05-28 12:30 | disposition home or self-care (01) ==
LOC: MED/SURG 07:12 → ER 07:12 → MED/SURG 10:11
PROVIDERS: ADMIT Internal Medicine; ATTEND Internal Medicine
DX: I10 Essential (primary) hypertension; E86.0 Dehydration; N28.89 Other specified disorders of kidney and ureter; E03.8 Other specified hypothyroidism; R06.02 Shortness of breath; E78.2 Mixed hyperlipidemia; R07.2 Precordial pain; R79.1 Abnormal coagulation profile; R94.4 Abnormal results of kidney function studies
CPT/HCPCS: 36415; 71010; 71045; 80053; 80061; 82550; 82553; 83735; 84484; 85025; 85610; 85730; 93005; 93306; 94760; 96365; 96372; 96374; 96375; 99284; A4216; A4222; C9113; G0378; J1650; J1885; J2060; J2270; J2405; J7030; S0028

== ENCOUNTER 2023-07-07 14:20 | Observation (INO) ==
--- NOTE | 2023-07-07 15:10 | DR.GENAD ---
HPI Time Seen Time Seen by Provider: 07/07/23 15:10 PCP Primary Care Physician: Kamaljit Complaint/Symptoms Chief Complaint:: Pt had sudden onset approx 30 mins ago of "my body feels like its on fire but I'm cold at the same time"; pt states "my head just drips with sweat; I feel sweaty all over". Pt c/o headache x1 week; pt states "I've had a sinus headache; I've been hurting behind my eyes" Pt denies n/v/d, abdominal pain, urinary complaints Self Treatment fo Chief Complaint: s/w PCP ofc this AM, advised to take mucinex x5 days and ofc would call in steroids; pt states she took one mucinex around 10am this AM, then she started feeling warm, drank water and then she could feel symptoms starting. Temp at home was 96 this AM Has taken tylenol/motrin over last few days for headache, temporarily relieves pain but headache comes back COVID-19 Coronavirus risk:travel/contact w/high risk person: No Has patient experienced Coronavirus symptoms: No Source History Provided: Patient and Significant Other Mode of Arrival Mode of Arrival: Wheelchair Timing Onset of Chief Complaint: 07/07/23 PMH PMH Past Medical History: Yes Past Medical History: Hypertension and Hypothyroidism Past Surgical History: Yes Surgical History: Hysterectomy Family History History of Family Medical Conditions: Yes Family Medical History: Hypertension Social History Does patient currently use any type of tobacco product: No Have you used tobacco products in the last 12 months: No Does any household member use tobacco: No Alcohol Use: None Do you use any recreational Drugs:: No Lives With: Spouse Lives Where: Home Travel Risk Coronavirus risk:travel/contact w/high risk person: No Has patient experienced Coronavirus symptoms: No Infectious screening Have you traveled outside the country in the last 6 months?: No Isolation: Standard PE Vital Signs Vitals: Vital Signs Temperature 96.7 F Temperature 86.9 F Pulse Rate 77 Pulse Rate 77 Pulse Rate 76 Pulse Rate 76 Respiratory Rate 27 Blood Pressure 200/109 Blood Pressure 188/85 Blood Pressure 177/86 Blood Pressure 198/86 Blood Pressure 210/83 Blood Pressure 198/82 Blood Pressure 177/77 Blood Pressure 187/104 Blood Pressure 169/72 Blood Pressure 182/77 Blood Pressure 193/79 Blood Pressure 177/74 Blood Pressure 187/81 Blood Pressure 200/88 Blood Pressure 194/79 Blood Pressure 184/74 Blood Pressure 184/74 Blood Pressure 184/74 Blood Pressure 184/74 Blood Pressure 161/117 Blood Pressure 154/72 Blood Pressure 186/82 O2 Sat by Pulse Oximetry 98 O2 Sat by Pulse Oximetry 98 O2 Sat by Pulse Oximetry 98 O2 Sat by Pulse Oximetry 97 ROR Labs Reviewed 07/07/23 15:11 07/07/23 15:11 Laboratory: WBC 10.7 X10^3/uL (3.6-10.0) H 07/07/23 15:11 RBC 4.19 X10^6/uL (3.5-5.4) 07/07/23 15:11 Hgb 13.2 g/dL (12.0-16.0) 07/07/23 15:11 Hct 39.0 % (36.0-47.0) 07/07/23 15:11 MCV 93.3 fL (80.0-100.0) 07/07/23 15:11 MCH 31.5 pg (27.0-34.0) 07/07/23 15:11 MCHC 33.8 g/dL (33.0-35.0) 07/07/23 15:11 RDW 13.1 % (11.6-16.5) 07/07/23 15:11 Plt Count 234 X10^3/uL (150.0-450.0) 07/07/23 15:11 MPV 8.5 fL (7.4-11.0) 07/07/23 15:11 Neut % (Auto) 76.0 % (42.0-75.0) H 07/07/23 15:11 Lymph % (Auto) 14.0 % (21.0-51.0) L 07/07/23 15:11 [place] % (Auto) 8.2 % (0.0-13.0) 07/07/23 15:11 Eos % (Auto) 1.2 % (0.9-2.9) 07/07/23 15:11 Baso % (Auto) 0.6 % (0.2-1.0) 07/07/23 15:11 Neut # (Auto) 8.1 x10^3/uL (2.2-4.8) H 07/07/23 15:11 Lymph # (Auto) 1.5 X10^3/uL (1.3-2.9) 07/07/23 15:11 [place] # (Auto) 0.9 x10^3/uL (0.3-0.8) H 07/07/23 15:11 Eos # (Auto) 0.1 x10^3/uL (0.0-0.2) 07/07/23 15:11 Baso # (Auto) 0.1 X10^3/uL (0.0-0.1) 07/07/23 15:11 Absolute Nucleated RBC 0.1 /100WBC 07/07/23 15:11 Sodium 137 mmol/L (136-145) 07/07/23 15:11 Corrected Sodium TNP 07/07/23 15:11 Potassium 4.1 mmol/L (3.5-5.1) 07/07/23 15:11 Chloride 100 mmol/L (98-107) 07/07/23 15:11 Carbon Dioxide 27.0 mmol/L (21-32) 07/07/23 15:11 BUN 22 mg/dL (7-18) H 07/07/23 15:11 Creatinine 1.25 mg/dL (0.55-1.02) H 07/07/23 15:11 Est GFR (MDRD) Af Amer 53 (>60) L 07/07/23 15:11 Est GFR (MDRD) Non-Af 44 (>60) L 07/07/23 15:11 Glucose 79 mg/dL (65-99) 07/07/23 15:11 Lactic Acid 1.2 mmol/L (0.4-2.0) 07/07/23 15:11 Calcium 9.3 mg/dL (8.5-10.1) 07/07/23 15:11 Corrected Calcium TNP 07/07/23 15:11 Total Bilirubin 0.60 mg/dL (0.2-1.0) 07/07/23 15:11 AST 22 Units/L (15-37) 07/07/23 15:11 ALT 19 Units/L (12-78) 07/07/23 15:11 Alkaline Phosphatase 98 Units/L (46-116) 07/07/23 15:11 Creatine Kinase 72 Units/L (26-192) 07/07/23 15:11 Troponin I High Sens 9.1 ng/L (4.0-60.0) 07/07/23 15:11 B-Natriuretic Peptide 116 pg/mL (0-79) H 07/07/23 15:11 Total Protein 8.1 g/dL (6.4-8.2) 07/07/23 15:11 Albumin 3.5 g/dL (3.4-5.0) 07/07/23 15:11 Globulin 4.6 g/dL (2.5-4.5) H 07/07/23 15:11 Albumin/Globulin Ratio 0.8 Ratio (1.1-2.1) L 07/07/23 15:11 Specimen Type Clean catch urine 07/07/23 14:55 Urine Color Yellow (YELLOW) 07/07/23 14:55 Urine Appearance Clear (CLEAR) 07/07/23 14:55 Urine pH 6.0 (5.0 - 8.0) 07/07/23 14:55 Ur Specific [place] 1.020 (1.000-1.030) 07/07/23 14:55 Urine Protein Negative (NEGATIVE) 07/07/23 14:55 Urine Glucose (UA) Negative (NEGATIVE) 07/07/23 14:55 Urine Ketones Negative (NEGATIVE) 07/07/23 14:55 Urine Blood Negative (NEGATIVE) 07/07/23 14:55 Urine Nitrite Negative (NEGATIVE) 07/07/23 14:55 Urine Bilirubin Negative (NEGATIVE) 07/07/23 14:55 Urine Urobilinogen Normal (NORMAL) 07/07/23 14:55 Ur Leukocyte Esterase Negative (NEGATIVE) 07/07/23 14:55 Opioid Opioid Risk Tool Age (Wagner box if 16-45): No History of Preadolescent Sexual Abuse: No Total: 0 Total Score Risk Category: Low Risk Copyright: Nick KELSEY predicting aberrant behaviors Discharge Plan Discharge Plan Patient Disposition: 01 HOME, SELF-CARE Condition: Stable Prescriptions: No Action atorvastatin 10 mg tablet 10 mg PO QDAY levothyroxine 50 mcg tablet 50 mcg PO QDAY pantoprazole 40 mg tablet,delayed release (DR/EC) 40 mg PO QDAY folic acid 1 mg tablet 1 mg PO QDAY losartan 50 mg Tablet 50 mg PO QDAY Health Concerns: Post Hospitalization: new medications and changes needed to prevent readmission or further decline. Pt educated and given instructions on all concerns. Plan of Treatment: Continue with present treatment and follow up plan. Pt is to keep follow up appointment as instructed and take medications as ordered. Orders to Discharge Patient Discharge Orders: Transfer (Routine); Ordered 07/07/23 Ordered By: MEHNAZ HORN Follow ups/Referrals Follow ups/Referrals: Smith Mari [Primary Care Provider] - 3 days Instructions Stand Alone Forms: Post Hospital Follow Up Care
[2023-07-07 15:20] LABS: BILIRUBIN,URINE NEGATIVE (NEGATIVE); BLOOD/HEMOGLOBIN,URINE NEGATIVE (NEGATIVE); GLUCOSE, URINE NEGATIVE (NEGATIVE); KETONES,URINE NEGATIVE (NEGATIVE); LEUKOCYTE ESTERASE ,URINE NEGATIVE (NEGATIVE); NITRITES,URINE NEGATIVE (NEGATIVE); PROTEIN,URINE NEGATIVE (NEGATIVE); UROBILINOGEN,URINE NORMAL (NORMAL)
[2023-07-07 15:26] LABS: COLOR,URINE YELLOW (YELLOW)
[2023-07-07 15:27] LABS: APPEARANCE,URINE CLEAR (CLEAR)
[2023-07-07] MEDS: NS 1,000 ML IV 1,000 ML IV SCH (15:58)
[2023-07-07 16:10] LABS: BASOPHILS # (AUTO) 0.1 X10^3/uL (0.0-0.1); BASOPHILS % (AUTO) 0.6 % (0.2-1.0); EOSINOPHILS # (AUTO) 0.1 x10^3/uL (0.0-0.2); EOSINOPHILS % (AUTO) 1.2 % (0.9-2.9); HEMOGLOBIN 13.2 g/dL (12.0-16.0); LYMPHOCYTES # (AUTO) 1.5 X10^3/uL (1.3-2.9); MEAN CORPUSCULAR HEMOGLOBIN 31.5 pg (27.0-34.0); MEAN CORPUSCULAR HGB CONC 33.8 g/dL (33.0-35.0); MEAN CORPUSCULAR VOLUME 93.3 fL (80.0-100.0); MEAN PLATELET VOLUME 8.5 fL (7.4-11.0); MONOCYTES # (AUTO) 0.9 x10^3/uL (0.3-0.8); MONOCYTES % (AUTO) 8.2 % (0.0-13.0); NEUTROPHILS # (AUTO) 8.1 x10^3/uL (2.2-4.8); PLATELET COUNT 234 X10^3/uL (150.0-450.0); RED BLOOD COUNT 4.19 X10^6/uL (3.5-5.4); RED CELL DISTRIBUTION WIDTH 13.1 % (11.6-16.5); WHITE BLOOD COUNT 10.7 X10^3/uL (3.6-10.0)
[2023-07-07 16:21] LABS: ALANINE AMINOTRANSFERASE 19 Units/L (12-78); ALBUMIN 3.5 g/dL (3.4-5.0); ALKALINE PHOSPHATASE 98 Units/L (46-116); ASPARTATE AMINO TRANSFERASE 22 Units/L (15-37); BLOOD UREA NITROGEN 22 mg/dL (7-18); CALCIUM 9.3 mg/dL (8.5-10.1); CHLORIDE 100 mmol/L (98-107); CREATININE 1.25 mg/dL (0.55-1.02); GLUCOSE 79 mg/dL (65-99); POTASSIUM 4.1 mmol/L (3.5-5.1); SODIUM 137 mmol/L (136-145); TOTAL PROTEIN 8.1 g/dL (6.4-8.2); eGFR NON BLACK RACES 44 (>60)
--- NOTE | 2023-07-07 16:33 | RAD ---
EXAM:CHEST, 1 VIEWHISTORY:"my body feels like its on fire but I'm cold at the same time"; pt states "my head just drips with sweat; I feel sweaty all over".;COMPARISON:None.TECHNIQUE:Single AP view of the chestFINDINGS:Heart size is magnified by acquisition technique and suboptimal inspiration and mediastinal contours are normal. Lungs are clear as are the pleural spaces. No free air or pneumothorax. No acute bony abnormality.IMPRESSION:No acute radiographic abnormalities of the chestTHIS IS AN ELECTRONICALLY VERIFIED FINAL REPORT07/07/2023 4:29 PM - Electronically signed by Scooter Russell MD
[2023-07-07] MEDS: APRESOLINE INJ 20 MG VIAL IVP ONE ×2 (17:41→21:05)
[2023-07-07] MEDS: CATAPRES TAB 0.2 MG PO ONE (22:41)
[2023-07-07] MEDS: ROCEPHIN VIAL 1 GRAM 1 G in NS 100 ML IV 100 ML IV SCH (23:16)
[2023-07-07 23:39] VITALS: BMI 35.3
[2023-07-08] MEDS: TYLENOL 325 MG TAB PO PRN (00:09)
[2023-07-08 05:08] LABS: BASOPHILS # (AUTO) 0.1 X10^3/uL (0.0-0.1); BASOPHILS % (AUTO) 0.9 % (0.2-1.0); EOSINOPHILS # (AUTO) 0.1 x10^3/uL (0.0-0.2); EOSINOPHILS % (AUTO) 1.7 % (0.9-2.9); HEMATOCRIT 34.2 % (36.0-47.0); HEMOGLOBIN 11.6 g/dL (12.0-16.0); LYMPHOCYTES # (AUTO) 1.4 X10^3/uL (1.3-2.9); LYMPHOCYTES % (AUTO) 22.4 % (21.0-51.0); MEAN CORPUSCULAR HEMOGLOBIN 31.4 pg (27.0-34.0); MEAN CORPUSCULAR HGB CONC 33.8 g/dL (33.0-35.0); MEAN CORPUSCULAR VOLUME 92.9 fL (80.0-100.0); MEAN PLATELET VOLUME 8.3 fL (7.4-11.0); MONOCYTES # (AUTO) 0.7 x10^3/uL (0.3-0.8); MONOCYTES % (AUTO) 11.6 % (0.0-13.0); NEUTROPHILS % (AUTO) 63.4 % (42.0-75.0); PLATELET COUNT 224 X10^3/uL (150.0-450.0); RED BLOOD COUNT 3.68 X10^6/uL (3.5-5.4); RED CELL DISTRIBUTION WIDTH 13.5 % (11.6-16.5); WHITE BLOOD COUNT 6.4 X10^3/uL (3.6-10.0)
[2023-07-08 05:20] LABS: ALANINE AMINOTRANSFERASE 17 Units/L (12-78); ALBUMIN 2.9 g/dL (3.4-5.0); ALKALINE PHOSPHATASE 78 Units/L (46-116); ASPARTATE AMINO TRANSFERASE 18 Units/L (15-37); BLOOD UREA NITROGEN 18 mg/dL (7-18); CALCIUM 8.7 mg/dL (8.5-10.1); CARBON DIOXIDE 27.8 mmol/L (21-32); CHLORIDE 105 mmol/L (98-107); COR CA(FOR HYPOALB) 9.6 mg/dL (8.5-10.1); CREATININE 1.11 mg/dL (0.55-1.02); GLUCOSE 87 mg/dL (65-99); POTASSIUM 4.2 mmol/L (3.5-5.1); SODIUM 141 mmol/L (136-145); TOTAL PROTEIN 6.8 g/dL (6.4-8.2); eGFR NON BLACK RACES 51 (>60)
[2023-07-08] MEDS: FOLIC ACID TAB 1 MG PO SCH (08:42)
[2023-07-08] MEDS: SYNTHROID 50 mcg TAB PO SCH (08:42)
[2023-07-08] MEDS: PROTONIX TAB 40 MG PO SCH (08:42)
[2023-07-08] MEDS: COZAAR PO SCH (08:42)
[2023-07-08] MEDS: LIPITOR TAB 10 MG PO SCH (08:42)
[2023-07-08] MEDS: LOVENOX INJ 40 MG SYR SC SCH (09:36)
--- NOTE | 2023-07-08 09:45 | DR.H&P ---
H&P History & Physical for Day of: H&P Date: 07/08/23 Chief Complaint Chief Complaint: low temp, headache Allergies Allergies Allergy/AdvReac Type Severity Reaction Status Date / Time fluticasone [From Flonase] Allergy Verified 07/07/23 14:45 naproxen Allergy Verified 07/07/23 14:45 History of Present Illness History of Present Illness: Ms Steele is a 78y/o female with a PMH of HTN, hypothyroidism presented with worsening headache, weakness and low temp. She states she has been having frontal headache and runny nose for almost a week. She called PCP office yesterday and was told to take mucinex. She states she got really hot and sweaty and was told to go to the ER. Er work up showed her temp to be 86.9, SBP>200. Labs showed elevated creatinine, bnp 116, trop (-) lactic acid (-). She was given IV hydralazine. UA and CXR were negative. Blood cultures were collected and she was started on IV Rocephin. Patient states she still has a headache. Denies chest pain or SOB. Denies any urinary or GI symptoms. She has not been checking her BP recently but states she had a check-up in Apr and her BP was elevated then. She takes losartan daily. Labs/imaging reviewed -WBC 6.4 Hgb 11.6 BUN/Cr: 18/1.11 BNP 116 Trop (-) Lactic acid 1.2 -UA (-) -CXR: no acute process Plan: continue telemetry, monitor BP. Order echo. Resume home medications. Will check COVID panel. Follow pending cultures. Continue Rocephin. Will DC fluids. Replace electrolytes as per protocol. Cardiac diet. Add lovenox for DVT ppx. Monitor AM labs/imaging. Past Medical History Past Medical History: Hypertension and Hypothyroidism Past Surgical History Surgical History: , AEMT Surgery and Hysterectomy Family History Family Medical History: Heart Failure and Hypertension Social History Does patient currently use any type of tobacco product: No Have you used tobacco products in the last 12 months: No Does any household member use tobacco: No Alcohol Use: None Drug Use: None Medications Home Medications: Home Medications Medication Instructions Recorded Confirmed Type atorvastatin 10 mg tablet 10 mg PO QDAY 07/07/23 07/07/23 History folic acid 1 mg tablet 1 mg PO QDAY 07/07/23 07/07/23 History levothyroxine 50 mcg tablet 50 mcg PO QDAY 07/07/23 07/07/23 History losartan 50 mg tablet 50 mg PO QDAY 07/07/23 07/07/23 History pantoprazole 40 mg tablet,delayed 40 mg PO QDAY 07/07/23 07/07/23 History release Labs 07/08/23 04:44 07/08/23 04:44 Labs: Laboratory WBC 6.4 X10^3/uL (3.6-10.0) 07/08/23 04:44 RBC 3.68 X10^6/uL (3.5-5.4) 07/08/23 04:44 Hgb 11.6 g/dL (12.0-16.0) L 07/08/23 04:44 Hct 34.2 % (36.0-47.0) L 07/08/23 04:44 MCV 92.9 fL (80.0-100.0) 07/08/23 04:44 MCH 31.4 pg (27.0-34.0) 07/08/23 04:44 MCHC 33.8 g/dL (33.0-35.0) 07/08/23 04:44 RDW 13.5 % (11.6-16.5) 07/08/23 04:44 Plt Count 224 X10^3/uL (150.0-450.0) 07/08/23 04:44 MPV 8.3 fL (7.4-11.0) 07/08/23 04:44 Neut % (Auto) 63.4 % (42.0-75.0) 07/08/23 04:44 Lymph % (Auto) 22.4 % (21.0-51.0) 07/08/23 04:44 [place] % (Auto) 11.6 % (0.0-13.0) 07/08/23 04:44 Eos % (Auto) 1.7 % (0.9-2.9) 07/08/23 04:44 Baso % (Auto) 0.9 % (0.2-1.0) 07/08/23 04:44 Neut # (Auto) 4.0 x10^3/uL (2.2-4.8) 07/08/23 04:44 Lymph # (Auto) 1.4 X10^3/uL (1.3-2.9) 07/08/23 04:44 [place] # (Auto) 0.7 x10^3/uL (0.3-0.8) 07/08/23 04:44 Eos # (Auto) 0.1 x10^3/uL (0.0-0.2) 07/08/23 04:44 Baso # (Auto) 0.1 X10^3/uL (0.0-0.1) 07/08/23 04:44 Absolute Nucleated RBC 0.0 /100WBC 07/08/23 04:44 Sodium 141 mmol/L (136-145) 07/08/23 04:44 Corrected Sodium TNP 07/08/23 04:44 Potassium 4.2 mmol/L (3.5-5.1) 07/08/23 04:44 Chloride 105 mmol/L (98-107) 07/08/23 04:44 Carbon Dioxide 27.8 mmol/L (21-32) 07/08/23 04:44 BUN 18 mg/dL (7-18) 07/08/23 04:44 Creatinine 1.11 mg/dL (0.55-1.02) H 07/08/23 04:44 Est GFR (MDRD) Af Amer > 60 (>60) 07/08/23 04:44 Est GFR (MDRD) Non-Af 51 (>60) L 07/08/23 04:44 Glucose 87 mg/dL (65-99) 07/08/23 04:44 Lactic Acid 1.2 mmol/L (0.4-2.0) 07/07/23 15:11 Calcium 8.7 mg/dL (8.5-10.1) 07/08/23 04:44 Corrected Calcium 9.6 mg/dL (8.5-10.1) 07/08/23 04:44 Total Bilirubin 0.40 mg/dL (0.2-1.0) 07/08/23 04:44 AST 18 Units/L (15-37) 07/08/23 04:44 ALT 17 Units/L (12-78) 07/08/23 04:44 Alkaline Phosphatase 78 Units/L (46-116) 07/08/23 04:44 Creatine Kinase 72 Units/L (26-192) 07/07/23 15:11 Troponin I High Sens 9.1 ng/L (4.0-60.0) 07/07/23 15:11 B-Natriuretic Peptide 116 pg/mL (0-79) H 07/07/23 15:11 Total Protein 6.8 g/dL (6.4-8.2) 07/08/23 04:44 Albumin 2.9 g/dL (3.4-5.0) L 07/08/23 04:44 Globulin 3.9 g/dL (2.5-4.5) 07/08/23 04:44 Albumin/Globulin Ratio 0.7 Ratio (1.1-2.1) L 07/08/23 04:44 Specimen Type Clean catch urine 07/07/23 14:55 Urine Color Yellow (YELLOW) 07/07/23 14:55 Urine Appearance Clear (CLEAR) 07/07/23 14:55 Urine pH 6.0 (5.0 - 8.0) 07/07/23 14:55 Ur Specific [place] 1.020 (1.000-1.030) 07/07/23 14:55 Urine Protein Negative (NEGATIVE) 07/07/23 14:55 Urine Glucose (UA) Negative (NEGATIVE) 07/07/23 14:55 Urine Ketones Negative (NEGATIVE) 07/07/23 14:55 Urine Blood Negative (NEGATIVE) 07/07/23 14:55 Urine Nitrite Negative (NEGATIVE) 07/07/23 14:55 Urine Bilirubin Negative (NEGATIVE) 07/07/23 14:55 Urine Urobilinogen Normal (NORMAL) 07/07/23 14:55 Ur Leukocyte Esterase Negative (NEGATIVE) 07/07/23 14:55 Review of Systems Constitutional: Chills, Sweats and Weakness Eyes: No Symptoms Reported Respiratory: No Symptoms Reported Cardiovascular: No Symptoms Reported Gastrointestinal: No Symptoms Reported Genitourinary: No Symptoms Reported Musculoskeletal: No Symptoms Reported Skin: No Symptoms Reported Neurological: Other (headache ) Physical Exam Vital Signs: Vital Signs Temperature 97.9 F Temperature 97.8 F Pulse Rate 67 Pulse Rate 71 Pulse Rate 71 Pulse Rate 66 Pulse Rate 66 Pulse Rate 64 Pulse Rate 71 Pulse Rate 62 Pulse Rate 65 Pulse Rate 66 Pulse Rate 62 Pulse Rate 65 Pulse Rate 65 Pulse Rate 66 Respiratory Rate 25 Respiratory Rate 28 Respiratory Rate 23 Respiratory Rate 28 Respiratory Rate 21 Respiratory Rate 21 Respiratory Rate 24 Respiratory Rate 23 Respiratory Rate 20 Respiratory Rate 21 Respiratory Rate 19 Respiratory Rate 20 Respiratory Rate 18 Respiratory Rate 18 Respiratory Rate 17 Blood Pressure 185/74 Blood Pressure 169/71 Blood Pressure 162/71 Blood Pressure 175/68 Blood Pressure 159/68 Blood Pressure 197/79 Blood Pressure 167/68 Blood Pressure 174/74 Blood Pressure 148/67 Blood Pressure 145/63 Blood Pressure 167/72 Blood Pressure 167/72 Blood Pressure 136/63 O2 Sat by Pulse Oximetry 96 O2 Sat by Pulse Oximetry 96 O2 Sat by Pulse Oximetry 96 O2 Sat by Pulse Oximetry 96 O2 Sat by Pulse Oximetry 95 O2 Sat by Pulse Oximetry 97 O2 Sat by Pulse Oximetry 98 O2 Sat by Pulse Oximetry 97 O2 Sat by Pulse Oximetry 97 O2 Sat by Pulse Oximetry 96 O2 Sat by Pulse Oximetry 97 O2 Sat by Pulse Oximetry 95 O2 Sat by Pulse Oximetry 96 O2 Sat by Pulse Oximetry 97 Oriented: Normal Eyes: Normal Throat: Normal Respiratory: RLL Rales and LLL Rales Cardiovascular: Normal Auscultation: Bowel Sounds: Normal Palpation: Normal Tenderness: Normal Skin: Normal Musculoskeletal: Normal Psychiatric: Normal Mood Description: Calm Affect: Normal Speech Pattern: Clear and Appropriate Assessment/Plan (1) Hypothermia: Qualifiers: Encounter type: sequela Qualified Code(s): T68.XXXS - Hypothermia, sequela Status: Acute (2) Accelerated hypertension: Status: Acute (3) JAZIEL (acute kidney injury): Status: Acute (4) Generalized weakness: Status: Acute (5) Hypothyroidism (acquired): Status: Acute (6) Hyperlipidemia: Qualifiers: Hyperlipidemia type: mixed hyperlipidemia Qualified Code(s): E78.2 - Mixed hyperlipidemia Status: Acute Review H&P Reviewed: Yes Patient was examined?: Yes
[2023-07-08] MEDS: NORVASC TAB 10 MG PO SCH (20:03)
[2023-07-08] MEDS: CATAPRES TAB 0.1 MG PO ONE (23:45)
--- NOTE | 2023-07-08 23:50 | EKG ---
Test Reason : HTN protocol Blood Pressure : */* mmHG Vent. Rate : 80 BPM Atrial Rate : 80 BPM P-R Int : 164 ms QRS Dur : 120 ms QT Int : 422 ms P-R-T Axes : 57 -1 11 degrees QTc Int : 486 ms Normal sinus rhythm Right bundle branch block Abnormal ECG No previous ECGs available Confirmed by Gabriel Herrera MD ([id number]) on 07/09/2023 7:25:05 AM Referred By: Confirmed By: Gabriel Herrera MD
[2023-07-09 04:38] LABS: BASOPHILS # (AUTO) 0.1 X10^3/uL (0.0-0.1); HEMOGLOBIN 11.7 g/dL (12.0-16.0); PLATELET COUNT 225 X10^3/uL (150.0-450.0)
[2023-07-09 04:43] LABS: EOSINOPHILS # (AUTO) 0.2 x10^3/uL (0.0-0.2); EOSINOPHILS % (AUTO) 3.7 % (0.9-2.9); HEMATOCRIT 34.8 % (36.0-47.0); LYMPHOCYTES # (AUTO) 1.4 X10^3/uL (1.3-2.9); MEAN CORPUSCULAR HEMOGLOBIN 31.6 pg (27.0-34.0); MEAN CORPUSCULAR HGB CONC 33.7 g/dL (33.0-35.0); MEAN CORPUSCULAR VOLUME 93.8 fL (80.0-100.0); MONOCYTES # (AUTO) 0.8 x10^3/uL (0.3-0.8); MONOCYTES % (AUTO) 12.5 % (0.0-13.0); NEUTROPHILS # (AUTO) 3.8 x10^3/uL (2.2-4.8); NEUTROPHILS % (AUTO) 60.8 % (42.0-75.0); RED BLOOD COUNT 3.71 X10^6/uL (3.5-5.4); RED CELL DISTRIBUTION WIDTH 13.5 % (11.6-16.5); WHITE BLOOD COUNT 6.3 X10^3/uL (3.6-10.0)
[2023-07-09 04:53] LABS: ALANINE AMINOTRANSFERASE 17 Units/L (12-78); ALBUMIN 2.9 g/dL (3.4-5.0); ALKALINE PHOSPHATASE 83 Units/L (46-116); ASPARTATE AMINO TRANSFERASE 18 Units/L (15-37); BLOOD UREA NITROGEN 21 mg/dL (7-18); CALCIUM 8.7 mg/dL (8.5-10.1); CARBON DIOXIDE 30.7 mmol/L (21-32); CHLORIDE 106 mmol/L (98-107); COR CA(FOR HYPOALB) 9.6 mg/dL (8.5-10.1); CREATININE 1.24 mg/dL (0.55-1.02); GLUCOSE 102 mg/dL (65-99); POTASSIUM 4.2 mmol/L (3.5-5.1); SODIUM 141 mmol/L (136-145); TOTAL PROTEIN 6.8 g/dL (6.4-8.2); eGFR NON BLACK RACES 44 (>60)
[2023-07-09 07:19] VITALS: TEMP 98.4
[2023-07-09] MEDS: COZAAR PO SCH (09:35)
[2023-07-09 14:17] VITALS: BP 165/68; PULSE 75; RESP 19; O2SAT 97
--- NOTE | 2023-07-10 16:11 | W.DIS.FURT ---
Summary of Discharge Discharge Summary of Date Date of Exam: 07/09/23 Admission Date Date of Admission: 07/07/23 Admission Diagnosis Hospital Course: Ms Steele is a 78y/o female with a PMH of HTN, hypothyroidism presented with worsening headache, weakness and low temp. She states she has been having frontal headache and runny nose for almost a week. She called PCP office yesterday and was told to take mucinex. She states she got really hot and sweaty and was told to go to the ER. Er work up showed her temp to be 86.9, SBP>200. Labs showed elevated creatinine, bnp 116, trop (-) lactic acid (-). She was given IV hydralazine. UA and CXR were negative. Blood cultures were collected and she was started on IV Rocephin. Patient's labs were monitored daily, electrolytes replaced as needed. Patient's blood pressure remained elevated, losartan was increased to 100 mg daily and amlodipine 10 mg was added. Patient's blood cultures were negative. Patient also had COVID panel done which was negative. She had echocardiogram which did not show any significant abnormalities, similar to previous study. Patient was feeling better, stable for discharge home. She was ambulating in the room. She will follow-up with PCP as scheduled. Vital Signs: Vital Signs (72 hours) 07/07/23 14:25 07/07/23 15:33 07/07/23 16:03 Temperature 86.9 F L 96.7 F L Pulse Rate 76 Pulse Rate [Left Radial] Respiratory Rate 27 H Blood Pressure 186/82 154/72 Blood Pressure [Right Arm] O2 Sat by Pulse Oximetry 97 Oxygen Delivery Method Room Air FIO2% 07/07/23 16:00 07/07/23 16:31 07/07/23 16:31 Temperature Pulse Rate Pulse Rate [Left Radial] Respiratory Rate Blood Pressure 161/117 184/74 184/74 Blood Pressure [Right Arm] O2 Sat by Pulse Oximetry Oxygen Delivery Method FIO2% 07/07/23 16:31 07/07/23 16:31 07/07/23 17:01 Temperature Pulse Rate Pulse Rate [Left Radial] Respiratory Rate Blood Pressure 184/74 184/74 194/79 Blood Pressure [Right Arm] O2 Sat by Pulse Oximetry Oxygen Delivery Method FIO2% 07/07/23 17:34 07/07/23 17:36 07/07/23 18:01 Temperature Pulse Rate Pulse Rate [Left Radial] Respiratory Rate Blood Pressure 200/88 187/81 177/74 Blood Pressure [Right Arm] O2 Sat by Pulse Oximetry Oxygen Delivery Method FIO2% 07/07/23 18:15 07/07/23 18:31 07/07/23 18:46 Temperature Pulse Rate Pulse Rate [Left Radial] Respiratory Rate Blood Pressure 193/79 182/77 169/72 Blood Pressure [Right Arm] O2 Sat by Pulse Oximetry Oxygen Delivery Method FIO2% 07/07/23 19:01 07/07/23 19:16 07/07/23 19:30 Temperature Pulse Rate Pulse Rate [Left Radial] Respiratory Rate Blood Pressure 187/104 177/77 198/82 Blood Pressure [Right Arm] O2 Sat by Pulse Oximetry Oxygen Delivery Method FIO2% 07/07/23 19:46 07/07/23 19:50 07/07/23 19:52 Temperature Pulse Rate Pulse Rate [Left Radial] Respiratory Rate Blood Pressure 210/83 198/86 177/86 Blood Pressure [Right Arm] O2 Sat by Pulse Oximetry Oxygen Delivery Method FIO2% 07/07/23 20:00 07/07/23 20:33 07/07/23 20:35 Temperature Pulse Rate 76 Pulse Rate [Left Radial] Respiratory Rate Blood Pressure 188/85 200/109 Blood Pressure [Right Arm] O2 Sat by Pulse Oximetry 98 Oxygen Delivery Method FIO2% 07/07/23 20:35 07/07/23 20:45 07/07/23 21:00 Temperature Pulse Rate 77 77 Pulse Rate [Left Radial] Respiratory Rate Blood Pressure 218/86 Blood Pressure [Right Arm] O2 Sat by Pulse Oximetry 98 98 Oxygen Delivery Method FIO2% 07/07/23 21:00 07/07/23 21:30 07/07/23 21:30 Temperature Pulse Rate 76 Pulse Rate [Left Radial] Respiratory Rate Blood Pressure 204/79 204/79 Blood Pressure [Right Arm] O2 Sat by Pulse Oximetry 97 Oxygen Delivery Method FIO2% 07/07/23 21:30 07/07/23 22:00 07/07/23 22:01 Temperature Pulse Rate 89 89 Pulse Rate [Left Radial] Respiratory Rate Blood Pressure 194/81 Blood Pressure [Right Arm] O2 Sat by Pulse Oximetry 96 97 Oxygen Delivery Method FIO2% 07/07/23 22:01 07/07/23 23:04 07/07/23 22:50 Temperature 98 F Pulse Rate 90 Pulse Rate [Left Radial] 74 Respiratory Rate 20 Blood Pressure Blood Pressure [Right Arm] 198/80 O2 Sat by Pulse Oximetry 96 97 Oxygen Delivery Method Room Air Room Air FIO2% 07/07/23 23:54 07/08/23 00:09 07/08/23 01:00 Temperature Pulse Rate 73 Pulse Rate [Left Radial] 74 Respiratory Rate 21 20 22 Blood Pressure 133/64 Blood Pressure [Right Arm] 150/65 O2 Sat by Pulse Oximetry 98 95 Oxygen Delivery Method Room Air Room Air FIO2% 07/08/23 01:09 07/08/23 02:00 07/08/23 03:00 Temperature Pulse Rate 66 65 Pulse Rate [Left Radial] Respiratory Rate 20 17 18 Blood Pressure 136/63 167/72 Blood Pressure [Right Arm] O2 Sat by Pulse Oximetry 97 96 Oxygen Delivery Method Room Air Room Air FIO2% 07/08/23 03:00 07/08/23 04:00 07/08/23 05:00 Temperature 97.8 F Pulse Rate 65 62 66 Pulse Rate [Left Radial] Respiratory Rate 18 20 19 Blood Pressure 167/72 145/63 148/67 Blood Pressure [Right Arm] O2 Sat by Pulse Oximetry 95 97 96 Oxygen Delivery Method Room Air Room Air Room Air FIO2% 07/08/23 06:00 07/08/23 05:40 07/08/23 07:08 Temperature Pulse Rate 65 62 Pulse Rate [Left Radial] Respiratory Rate 21 20 Blood Pressure 174/74 167/68 Blood Pressure [Right Arm] O2 Sat by Pulse Oximetry 97 97 Oxygen Delivery Method Room Air Room Air FIO2% 21 07/08/23 07:00 07/08/23 07:31 07/08/23 07:31 Temperature Pulse Rate 71 Pulse Rate [Left Radial] Respiratory Rate 23 Blood Pressure 197/79 Blood Pressure [Right Arm] O2 Sat by Pulse Oximetry 98 Oxygen Delivery Method Room Air FIO2% 21 07/08/23 07:42 07/08/23 07:42 07/08/23 08:00 Temperature 97.9 F Pulse Rate 64 66 Pulse Rate [Left Radial] Respiratory Rate 24 21 Blood Pressure 159/68 Blood Pressure [Right Arm] O2 Sat by Pulse Oximetry 97 95 Oxygen Delivery Method FIO2% 07/08/23 08:01 07/08/23 08:01 07/08/23 08:14 Temperature Pulse Rate 66 Pulse Rate [Left Radial] Respiratory Rate 21 Blood Pressure 175/68 162/71 Blood Pressure [Right Arm] O2 Sat by Pulse Oximetry 96 Oxygen Delivery Method FIO2% 07/08/23 08:14 07/08/23 08:54 07/08/23 08:31 Temperature Pulse Rate 71 71 Pulse Rate [Left Radial] Respiratory Rate 28 H 28 H 23 Blood Pressure Blood Pressure [Right Arm] O2 Sat by Pulse Oximetry 96 96 Oxygen Delivery Method FIO2% 07/08/23 08:31 07/08/23 09:00 07/08/23 09:00 Temperature Pulse Rate 67 Pulse Rate [Left Radial] Respiratory Rate 25 H Blood Pressure 169/71 185/74 Blood Pressure [Right Arm] O2 Sat by Pulse Oximetry 96 Oxygen Delivery Method FIO2% 07/08/23 09:40 07/08/23 09:21 07/08/23 09:21 Temperature Pulse Rate 72 Pulse Rate [Left Radial] Respiratory Rate 26 H Blood Pressure 174/74 181/75 Blood Pressure [Right Arm] O2 Sat by Pulse Oximetry 99 Oxygen Delivery Method FIO2% 07/08/23 09:30 07/08/23 09:30 07/08/23 09:39 Temperature Pulse Rate 66 68 Pulse Rate [Left Radial] Respiratory Rate 21 25 H Blood Pressure 187/79 Blood Pressure [Right Arm] O2 Sat by Pulse Oximetry 97 97 Oxygen Delivery Method FIO2% 07/08/23 09:39 07/08/23 10:00 07/08/23 10:01 Temperature Pulse Rate 66 65 Pulse Rate [Left Radial] Respiratory Rate 23 23 Blood Pressure 174/74 Blood Pressure [Right Arm] O2 Sat by Pulse Oximetry 98 97 Oxygen Delivery Method FIO2% 07/08/23 10:01 07/08/23 09:54 07/08/23 10:31 Temperature Pulse Rate Pulse Rate [Left Radial] Respiratory Rate 28 H Blood Pressure 156/69 151/69 Blood Pressure [Right Arm] O2 Sat by Pulse Oximetry Oxygen Delivery Method FIO2% 07/08/23 10:31 07/08/23 11:00 07/08/23 11:00 Temperature Pulse Rate 68 68 Pulse Rate [Left Radial] Respiratory Rate 23 21 Blood Pressure 179/75 168/72 Blood Pressure [Right Arm] O2 Sat by Pulse Oximetry 98 97 Oxygen Delivery Method FIO2% 07/08/23 11:07 07/08/23 11:07 07/08/23 11:30 Temperature Pulse Rate 74 74 Pulse Rate [Left Radial] Respiratory Rate 24 24 Blood Pressure 168/72 Blood Pressure [Right Arm] O2 Sat by Pulse Oximetry 99 98 Oxygen Delivery Method FIO2% 07/08/23 11:30 07/08/23 12:00 07/08/23 12:00 Temperature Pulse Rate 71 Pulse Rate [Left Radial] Respiratory Rate 25 H Blood Pressure 173/71 180/71 Blood Pressure [Right Arm] O2 Sat by Pulse Oximetry 98 Oxygen Delivery Method FIO2% 07/08/23 12:30 07/08/23 12:30 07/08/23 13:00 Temperature Pulse Rate 73 73 Pulse Rate [Left Radial] Respiratory Rate 27 H 25 H Blood Pressure 180/74 Blood Pressure [Right Arm] O2 Sat by Pulse Oximetry 98 97 Oxygen Delivery Method FIO2% 07/08/23 13:00 07/08/23 13:30 07/08/23 13:30 Temperature Pulse Rate 73 Pulse Rate [Left Radial] Respiratory Rate 24 Blood Pressure 176/72 168/70 Blood Pressure [Right Arm] O2 Sat by Pulse Oximetry 95 Oxygen Delivery Method FIO2% 07/08/23 14:00 07/08/23 14:01 07/08/23 14:01 Temperature Pulse Rate 72 71 Pulse Rate [Left Radial] Respiratory Rate 23 21 Blood Pressure 153/64 Blood Pressure [Right Arm] O2 Sat by Pulse Oximetry 96 98 Oxygen Delivery Method FIO2% 07/08/23 14:30 07/08/23 14:30 07/08/23 15:00 Temperature Pulse Rate 73 68 Pulse Rate [Left Radial] Respiratory Rate 22 24 Blood Pressure 148/67 Blood Pressure [Right Arm] O2 Sat by Pulse Oximetry 97 96 Oxygen Delivery Method FIO2% 07/08/23 15:00 07/08/23 15:30 07/08/23 15:30 Temperature Pulse Rate 66 Pulse Rate [Left Radial] Respiratory Rate 22 Blood Pressure 168/70 169/70 Blood Pressure [Right Arm] O2 Sat by Pulse Oximetry 97 Oxygen Delivery Method FIO2% 07/08/23 16:00 07/08/23 16:00 07/08/23 17:09 Temperature 97.9 F Pulse Rate 66 Pulse Rate [Left Radial] Respiratory Rate 23 Blood Pressure 163/71 171/74 Blood Pressure [Right Arm] O2 Sat by Pulse Oximetry 95 Oxygen Delivery Method FIO2% 07/08/23 16:00 07/08/23 16:30 07/08/23 16:30 Temperature Pulse Rate 68 Pulse Rate [Left Radial] Respiratory Rate 28 H Blood Pressure 163/71 167/70 Blood Pressure [Right Arm] O2 Sat by Pulse Oximetry 94 L Oxygen Delivery Method FIO2% 07/08/23 17:03 07/08/23 17:04 07/08/23 17:04 Temperature Pulse Rate 73 71 Pulse Rate [Left Radial] Respiratory Rate 29 H 28 H Blood Pressure 188/77 Blood Pressure [Right Arm] O2 Sat by Pulse Oximetry 96 95 Oxygen Delivery Method FIO2% 07/08/23 17:09 07/08/23 17:09 07/08/23 18:00 Temperature Pulse Rate 66 Pulse Rate [Left Radial] Respiratory Rate 27 H Blood Pressure 171/74 182/74 Blood Pressure [Right Arm] O2 Sat by Pulse Oximetry 96 Oxygen Delivery Method FIO2% 07/08/23 18:00 07/08/23 19:00 07/08/23 19:10 Temperature Pulse Rate 69 74 Pulse Rate [Left Radial] Respiratory Rate 29 H 21 Blood Pressure 195/74 165/71 Blood Pressure [Right Arm] O2 Sat by Pulse Oximetry 97 98 Oxygen Delivery Method Room Air FIO2% 07/08/23 19:33 07/08/23 19:00 07/08/23 20:00 Temperature 98.4 F Pulse Rate 71 Pulse Rate [Left Radial] Respiratory Rate 22 Blood Pressure 165/74 Blood Pressure [Right Arm] O2 Sat by Pulse Oximetry 96 Oxygen Delivery Method Room Air Room Air Room Air FIO2% 21 07/08/23 21:00 07/08/23 22:00 07/08/23 22:29 Temperature Pulse Rate 84 72 Pulse Rate [Left Radial] Respiratory Rate 20 20 Blood Pressure 189/80 196/84 188/77 Blood Pressure [Right Arm] O2 Sat by Pulse Oximetry 98 96 Oxygen Delivery Method Room Air Room Air FIO2% 07/08/23 23:00 07/08/23 23:20 07/08/23 23:42 Temperature 97.9 F Pulse Rate 73 Pulse Rate [Left Radial] Respiratory Rate 22 Blood Pressure 196/80 190/81 Blood Pressure [Right Arm] O2 Sat by Pulse Oximetry 95 Oxygen Delivery Method Room Air FIO2% 07/08/23 23:45 07/08/23 23:55 07/09/23 00:00 Temperature Pulse Rate 72 Pulse Rate [Left Radial] Respiratory Rate 20 Blood Pressure 191/64 Blood Pressure [Right Arm] 190/81 193/81 O2 Sat by Pulse Oximetry 96 Oxygen Delivery Method Room Air FIO2% 07/09/23 00:15 07/09/23 00:25 07/09/23 00:35 Temperature Pulse Rate Pulse Rate [Left Radial] Respiratory Rate Blood Pressure Blood Pressure [Right Arm] 171/73 166/72 160/70 O2 Sat by Pulse Oximetry Oxygen Delivery Method FIO2% 07/09/23 00:45 07/09/23 00:55 07/09/23 01:00 Temperature Pulse Rate 78 Pulse Rate [Left Radial] Respiratory Rate 21 Blood Pressure Blood Pressure [Right Arm] 164/70 161/70 O2 Sat by Pulse Oximetry 95 Oxygen Delivery Method Room Air FIO2% 07/09/23 02:00 07/09/23 03:00 07/09/23 04:00 Temperature 98.2 F Pulse Rate 68 66 67 Pulse Rate [Left Radial] Respiratory Rate 21 22 21 Blood Pressure 161/69 156/69 155/67 Blood Pressure [Right Arm] O2 Sat by Pulse Oximetry 94 L 95 95 Oxygen Delivery Method Room Air Room Air Room Air FIO2% 07/09/23 05:00 07/09/23 06:00 07/09/23 07:00 Temperature 98.4 F Pulse Rate 65 75 62 Pulse Rate [Left Radial] Respiratory Rate 22 21 19 Blood Pressure 149/63 162/72 145/66 Blood Pressure [Right Arm] O2 Sat by Pulse Oximetry 94 L 95 95 Oxygen Delivery Method Room Air Room Air Room Air FIO2% 07/09/23 08:00 07/09/23 07:00 07/09/23 09:00 Temperature Pulse Rate 76 70 Pulse Rate [Left Radial] Respiratory Rate 22 21 Blood Pressure 147/67 177/77 Blood Pressure [Right Arm] O2 Sat by Pulse Oximetry 96 96 Oxygen Delivery Method Room Air Room Air Room Air FIO2% 21 07/09/23 10:00 07/09/23 11:00 07/09/23 09:05 Temperature Pulse Rate 62 63 Pulse Rate [Left Radial] Respiratory Rate 22 22 Blood Pressure 163/72 170/74 Blood Pressure [Right Arm] O2 Sat by Pulse Oximetry 96 96 Oxygen Delivery Method Room Air Room Air Room Air FIO2% 07/09/23 12:00 Temperature Pulse Rate 71 Pulse Rate [Left Radial] Respiratory Rate 22 Blood Pressure 166/72 Blood Pressure [Right Arm] O2 Sat by Pulse Oximetry 98 Oxygen Delivery Method Room Air FIO2% Labs: Laboratory Last Values WBC 6.3 X10^3/uL (3.6-10.0) 07/09/23 04:13 RBC 3.71 X10^6/uL (3.5-5.4) 07/09/23 04:13 Hgb 11.7 g/dL (12.0-16.0) L 07/09/23 04:13 Hct 34.8 % (36.0-47.0) L 07/09/23 04:13 MCV 93.8 fL (80.0-100.0) 07/09/23 04:13 MCH 31.6 pg (27.0-34.0) 07/09/23 04:13 MCHC 33.7 g/dL (33.0-35.0) 07/09/23 04:13 RDW 13.5 % (11.6-16.5) 07/09/23 04:13 Plt Count 225 X10^3/uL (150.0-450.0) 07/09/23 04:13 MPV 8.0 fL (7.4-11.0) 07/09/23 04:13 Neut % (Auto) 60.8 % (42.0-75.0) 07/09/23 04:13 Lymph % (Auto) 22.0 % (21.0-51.0) 07/09/23 04:13 [place] % (Auto) 12.5 % (0.0-13.0) 07/09/23 04:13 Eos % (Auto) 3.7 % (0.9-2.9) H 07/09/23 04:13 Baso % (Auto) 1.0 % (0.2-1.0) 07/09/23 04:13 Neut # (Auto) 3.8 x10^3/uL (2.2-4.8) 07/09/23 04:13 Lymph # (Auto) 1.4 X10^3/uL (1.3-2.9) 07/09/23 04:13 [place] # (Auto) 0.8 x10^3/uL (0.3-0.8) 07/09/23 04:13 Eos # (Auto) 0.2 x10^3/uL (0.0-0.2) 07/09/23 04:13 Baso # (Auto) 0.1 X10^3/uL (0.0-0.1) 07/09/23 04:13 Absolute Nucleated RBC 0.1 /100WBC 07/09/23 04:13 Sodium 141 mmol/L (136-145) 07/09/23 04:13 Corrected Sodium TNP 07/09/23 04:13 Potassium 4.2 mmol/L (3.5-5.1) 07/09/23 04:13 Chloride 106 mmol/L (98-107) 07/09/23 04:13 Carbon Dioxide 30.7 mmol/L (21-32) 07/09/23 04:13 BUN 21 mg/dL (7-18) H 07/09/23 04:13 Creatinine 1.24 mg/dL (0.55-1.02) H 07/09/23 04:13 Est GFR (MDRD) Af Amer 54 (>60) L 07/09/23 04:13 Est GFR (MDRD) Non-Af 44 (>60) L 07/09/23 04:13 Glucose 102 mg/dL (65-99) H 07/09/23 04:13 Lactic Acid 1.2 mmol/L (0.4-2.0) 07/07/23 15:11 Calcium 8.7 mg/dL (8.5-10.1) 07/09/23 04:13 Corrected Calcium 9.6 mg/dL (8.5-10.1) 07/09/23 04:13 Total Bilirubin 0.30 mg/dL (0.2-1.0) 07/09/23 04:13 AST 18 Units/L (15-37) 07/09/23 04:13 ALT 17 Units/L (12-78) 07/09/23 04:13 Alkaline Phosphatase 83 Units/L (46-116) 07/09/23 04:13 Creatine Kinase 72 Units/L (26-192) 07/07/23 15:11 Troponin I High Sens 9.1 ng/L (4.0-60.0) 07/07/23 15:11 B-Natriuretic Peptide 116 pg/mL (0-79) H 07/07/23 15:11 Total Protein 6.8 g/dL (6.4-8.2) 07/09/23 04:13 Albumin 2.9 g/dL (3.4-5.0) L 07/09/23 04:13 Globulin 3.9 g/dL (2.5-4.5) 07/09/23 04:13 Albumin/Globulin Ratio 0.7 Ratio (1.1-2.1) L 07/09/23 04:13 Specimen Type Clean catch urine 07/07/23 14:55 Urine Color Yellow (YELLOW) 07/07/23 14:55 Urine Appearance Clear (CLEAR) 07/07/23 14:55 Urine pH 6.0 (5.0 - 8.0) 07/07/23 14:55 Ur Specific [place] 1.020 (1.000-1.030) 07/07/23 14:55 Urine Protein Negative (NEGATIVE) 07/07/23 14:55 Urine Glucose (UA) Negative (NEGATIVE) 07/07/23 14:55 Urine Ketones Negative (NEGATIVE) 07/07/23 14:55 Urine Blood Negative (NEGATIVE) 07/07/23 14:55 Urine Nitrite Negative (NEGATIVE) 07/07/23 14:55 Urine Bilirubin Negative (NEGATIVE) 07/07/23 14:55 Urine Urobilinogen Normal (NORMAL) 07/07/23 14:55 Ur Leukocyte Esterase Negative (NEGATIVE) 07/07/23 14:55 SARS-CoV-2 (PCR) Negative (NEGATIVE) 07/08/23 09:05 Influenza Type A (PCR) Negative (NEGATIVE) 07/08/23 09:05 Influenza Type B (PCR) Negative (NEGATIVE) 07/08/23 09:05 RSV (PCR) Negative (NEGATIVE) 07/08/23 09:05 Reason For Visit: HYPERTENSION, GENERAL WEAKNESS, HYPOTHEMIA Discharge Diagnosis All Active Problems (Updated 07/08/23 @ 09:45 by Leticia Richard) Generalized weakness (Acute) JAZIEL (acute kidney injury) (Acute) Accelerated hypertension (Acute) Hypothermia (Acute) Bronchopneumonia (Acute) Chest pain (Acute) Hyperlipidemia (Acute) Benign essential HTN (Acute) Hypothyroidism (acquired) (Acute) Chest pain, rule out acute myocardial infarction (Acute) Essential (primary) hypertension (Chronic) Hypothyroidism (Chronic) Chronic kidney disease (CKD) (Chronic) Plan of Treatment: Continue with present treatment and follow up plan. Pt is to keep follow up appointment as instructed and take medications as ordered. Discharge Medications Discharge Medications: fluticasone [From Flonase] Allergy (Verified 07/07/23 14:45) naproxen Allergy (Verified 07/07/23 14:45) CONTINUE taking the following medications atorvastatin 10 mg tablet 10 mg PO QDAY 07/07/23 [History] folic acid 1 mg tablet 1 mg PO QDAY 07/07/23 [History] levothyroxine 50 mcg tablet 50 mcg PO QDAY 07/07/23 [History] pantoprazole 40 mg tablet,delayed release 40 mg PO QDAY 07/07/23 [History] New Prescriptions amlodipine 10 mg tablet 10 mg PO DAILY 30 days #30 tabs 07/09/23 [Rx] losartan 100 mg tablet 100 mg PO QDAY 30 days #30 tabs 07/09/23 [Rx] Discharge Disposition Discharge Disposition: To home Discharge Condition: Stable Discharge Plan Discharge Plan Hospital Course: Ms Steele is a 78y/o female with a PMH of HTN, hypothyroidism presented with worsening headache, weakness and low temp. She states she has been having frontal headache and runny nose for almost a week. She called PCP office yesterday and was told to take mucinex. She states she got really hot and sweaty and was told to go to the ER. Er work up showed her temp to be 86.9, SBP>200. Labs showed elevated creatinine, bnp 116, trop (-) lactic acid (-). She was given IV hydralazine. UA and CXR were negative. Blood cultures were collected and she was started on IV Rocephin. Patient's labs were monitored daily, electrolytes replaced as needed. Patient's blood pressure remained elevated, losartan was increased to 100 mg daily and amlodipine 10 mg was added. Patient's blood cultures were negative. Patient also had COVID panel done which was negative. She had echocardiogram which did not show any significant abnormalities, similar to previous study. Patient was feeling better, stable for discharge home. She was ambulating in the room. She will follow-up with PCP as scheduled. Patient Disposition: 01 HOME, SELF-CARE Condition: Stable Health Concerns: Post Hospitalization: new medications and changes needed to prevent readmission or further decline. Pt educated and given instructions on all concerns. Care Plan Goals: Problem: Pain/Alteration in Comfort Goal: Improve/ Resolve Pain; Achieve Pain Tolerance Instructions: Take pain medications as prescribed. Contact your primary care provider if your pain is unrelieved or worsens. Follow up with primary care provider as directed. Plan of Treatment: Continue with present treatment and follow up plan. Pt is to keep follow up appointment as instructed and take medications as ordered. Prescription drug monitoring program results: PDMP reviewed and no concerns identified Prescriptions: New amlodipine 10 mg Tablet 10 mg PO DAILY 30 Days Qty: 30 0RF losartan 100 mg tablet 100 mg PO QDAY 30 Days Qty: 30 0RF Continued atorvastatin 10 mg tablet 10 mg PO QDAY levothyroxine 50 mcg tablet 50 mcg PO QDAY pantoprazole 40 mg tablet,delayed release (DR/EC) 40 mg PO QDAY folic acid 1 mg tablet 1 mg PO QDAY Discontinued losartan 50 mg Tablet 50 mg PO QDAY Orders to Discharge Patient Discharge Orders: Discharge (Routine); Ordered 07/09/23 Ordered By: Leticia Richard Follow ups/Referrals Follow ups/Referrals: Smith Mari [Primary Care Provider] - 07/16/23 11:00 am Instructions Instructions: How to Take Your Blood Pressure, [id number], Fatigue, Weakness, [id number], How to Take Your Blood Pressure, Hypertension, Adult, [id number] Stand Alone Forms: Post Hospital Follow Up Care
== END 2023-07-09 14:19 | disposition home or self-care (01) ==
LOC: ER 14:20 → ICU 14:20
PROVIDERS: ADMIT Family Medicine; ATTEND Internal Medicine
DX: E78.2 Mixed hyperlipidemia; R53.1 Weakness; Z20.822 Contact with and (suspected) exposure to COVID-19; N17.8 Other acute kidney failure; R94.31 Abnormal electrocardiogram [ECG] [EKG]; I50.9 Heart failure, unspecified; I34.0 Nonrheumatic mitral (valve) insufficiency; R68.0 Hypothermia, not associated with low environmental temperature; E03.8 Other specified hypothyroidism; I16.0 Hypertensive urgency; I11.0 Hypertensive heart disease with heart failure